=== PATIENT | female | born 1945 | race Caucasian/White ===

== ENCOUNTER 2017-09-12 13:46 | Observation (INO) | payer OTHER, SELFPAY ==
[~2017-09-12] VITALS: Ht 162.6 cm; Wt 88.8 kg
[~2017-09-12 13:46] MED LIST: PROPRANOLOL 1010 MG PO
[2017-09-12 13:49] VITALS: BP 178/83
[2017-09-12] MEDS ORDERED: VITAMIN D5000 UNIT PO (13:54)
[2017-09-12] MEDS ORDERED: METFORMIN HCL500 MG PO (13:54)
[2017-09-12] MEDS ORDERED: PLAVIX 75 MG TA75 M1 PO (13:54)
[2017-09-12 14:18] LABS: ABSOLUTE EOSINOPHILS 0.3 thou/uL (0.0-0.7); ABSOLUTE LYMPHOCYTES 1.7 thou/uL (0.8-5.3); ABSOLUTE MONOCYTES 0.5 thou/uL (0.0-1.2); ABSOLUTE NEUTROPHILS 6.1 thou/uL (1.6-8.1); BASOPHILS 0.2 %; HEMATOCRIT 39.2 % (37.0-47.0); HEMOGLOBIN 13.3 gm/dL (12.0-15.0); LYMPHOCYTES 20.3 %; MCH 31.3 pg (26.0-34.0); MCHC 33.9 g/dL (28.0-37.0); MCV 92.4 fL (80.0-100.0); MONOCYTES 5.5 %; MPV 7.8 fl. (7.2-11.1); NUCLEATED RBCS 0 /100WBC; PLATELET COUNT* 286 thou/uL (150-400); RBC 4.24 mil/uL (4.20-5.00); RDW-CV 13.4 % (10.5-14.5); WBC 8.6 thou/uL (4.0-11.0)
[2017-09-12 14:23] LABS: ANION GAP 9 mmol/L (7-16); BUN 18 mg/dL (7-18); CALCIUM 11.6 mg/dL (8.5-10.1); CHLORIDE 99 mmol/L (98-107); CO2 28 mmol/L (21-32); CREATININE 1.2 mg/dL (0.6-1.3); GLUCOSE 108 mg/dL (70-99); POTASSIUM 4.2 mmol/L (3.5-5.1); SODIUM 136 mmol/L (136-145)
[2017-09-12 14:27] LABS: INR 1.1; PROTIME 10.4 Seconds (9.20-11.50)
[2017-09-12 14:34] LABS: ALKALINE PHOSPHATASE 57 U/L (46-116); CHOLESTEROL 147 mg/dL (<200); HDL CHOLESTEROL 29 mg/dL (>40); LDL CHOLESTEROL 66 mg/dL (<100); LIPASE 409 U/L (73-393); NT-PRO BRAIN NAT PEPTIDE 201 pg/mL (<300); SGOT 22 U/L (15-37); SGPT 28 U/L (30-65); TC:HDL 5.1 Ratio (Not establshd); TOTAL BILIRUBIN 0.3 mg/dL (<0.1-1.0); TOTAL PROTEIN 7.9 g/dL (6.4-8.2); TRIGLYCERIDE 263 mg/dL (<150); TROPONIN-I LEVEL <0.06 ng/mL (<0.06); VLDL 53 mg/dL (<40)
[2017-09-12 14:35] LABS: SERUM ASSESSMENT Slight Lipemia
--- NOTE | 2017-09-12 15:33 | EKG ---
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: ALIRIO : 1945 Requested By: Gildardo Bradshaw Order Number: [id number] MD: Joseph Lynch Measurements Intervals [place] Rate: 88 P: 55 W[place]: 162 QRS: 31 QRSD: 92 T: 45 QT: 343 QTc: 415 Interpretive Statements Sinus rhythm Left atrial enlargement Compared to ECG 12/07/2014 12:23:16 Atrial abnormality now present Sinus arrhythmia no longer present Electronically Signed On 09-12-2017 15:33:16 CDT by Joseph Lynch [email or web address] <ELECTRONICALLY SIGNED> By: Joseph Lynhc MD, [facility] 09/12/17 1533 1350 1350 Joseph Lynch MD, FACC /EPI
--- NOTE | 2017-09-12 18:00 | NUR ---
PT GIVEN DINNER TRAY AT THIS TIME AND GI COCKTAIL WILL BE DRANK AFTER EATING DINNER.
[2017-09-12 19:10] VITALS: BP 134/68
[2017-09-12 19:23] VITALS: BP 161/68
[2017-09-12] MEDS ORDERED: LISINOPRIL-HCT1 EAC1 PO (19:28)
[2017-09-12] MEDS ORDERED: ATORVASTATIN PO (19:31)
[2017-09-13] VITALS (7 sets, daily range): BP systolic 112–166; BP diastolic 40–73
--- NOTE | 2017-09-13 05:35 | NUR ---
PATIENT ARRIVED FROM ED AROUND 1914 VIA CART. PATIENT A/OX4 AND PLEASANT. REPORTING CHEST "TIGHTNESS" RADIATING TO NECK/JAW. EKG APPEARED NORMAL SINUS RHYTHM. TROP'S ALL NEGATIVE. NPO FOR STRESS TEST TODAY. ON ROOM AIR. IV SALINE LOCKED. UP AD RUSSELL. BP STABLE, ELEVATED LAST NIGHT- DR BAKER NOTIFED AND ONETIME DOSE 10 MG LISINOPRIL GIVEN. SEE CHARTING. CALL LIGHT IN REACH, WILL CONTINUE WITH PLAN OF CARE.
[2017-09-13] MEDS ORDERED: PANTOPRAZOLE SO40 M1 PO (09:27)
[2017-09-13] MEDS ORDERED: ATORVASTATIN CA20 MG PO (09:27)
--- NOTE | 2017-09-13 10:28 | NUR ---
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, TRACING SR THIS AM- UPON ASSESSMENT PT NOTED TO RESTING IN BED, WATCING TV- PT A&O X4- CONTINENT OF BOWEL AND BLADDER- UP AD-RUSSELL IN ROOM WITH STEADY GAIT NOTED- LCTA, RESP EVEN AND UN-LABORED- VSS, O2 SAT 92% ON RA- ABDOMEN SOFT/ROUND/NON-TENDER, BS X4 QUADS- PT REPORTS TO HAVE HAD BM THIS AM- RIGHT DORSALIS PEDIS +1, LEFT 2+- IV NOTED TO RIGHT FA INTACT AND SL- LIGHT BREAKFAST GIVEN THIS AM, THEN NPO FOR SCHEDULED STRESS TEST THIS SHIFT- D/C ORDERS PENDING STRESS RESULTS- CHEST X-RAY COMPLETED THIS AM ORDERED, NEGATIVE FOR ABNORMALITIES- PT DENIES ANY C/O PAIN/DISCOMFORT AT THIS TIME- CALL LIGHT AND PERSONAL BELONGINGS WITH IN REACH- HOURLY ROUNDS IN PLACE R/T SAETY/NEEDS- ALL NEEDS MET AT THIS TIME-WCTM
--- NOTE | 2017-09-13 11:46 | NUR ---
Pt is A&O. Resides at home alone. Independent with ADLs. No DME. No hx of HH or SNF. Strong support sx. Pt NPO for stress test today. Goal is to return home at hi. Following.
[2017-09-13 13:08] LABS: eGFR IF AFRICAN AMERICAN 64 (>59)
--- NOTE | 2017-09-13 13:59 | EKG ---
[place] [address] ELECTROCARDIOGRAM REPORT Name: COURTNEY RUSH Room: [address] ADM IN M.R.#: [id number] Admission: 09/12/17 Attend Phys: Luis Enrique Lei MD Discharge: Date of : 47 Report #: [id number] THIS REPORT FOR: //name// [facility] Test Date: 2017-09-12 Test Time: 22:11:13 Pat Name: COURTNEY RUSH Department: Room: [address] Gender: F Credit Card Control Clerk: BYRON : 1945 Requested By: Luis Enrique Lei Order Number: [id number] Reading MD: Joseph Lynch Measurements Intervals [place] Rate: 58 P: 51 CT: 177 QRS: 48 QRSD: 91 T: 57 QT: 421 QTc: 414 Interpretive Statements Sinus rhythm Compared to ECG 09/12/2017 13:50:22 Atrial abnormality no longer present Electronically Signed On 09-13-2017 13:59:19 CDT by Joseph Lynch [email or web address] <ELECTRONICALLY SIGNED> By: Joseph Lynch MD, [facility] 09/13/17 1359 10 10 Joseph Lynch MD, [facility] /EPI
[2017-09-13 15:11] LABS: PARATHYROID HORMONE 18 pg/mL (15-65)
--- NOTE | 2017-09-13 17:33 | NUR ---
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
--- NOTE | 2017-09-13 23:56 | NUR ---
RECEIVRD REPORT AND ASSUMED CARE AT 1900. VSS. CARDIAC MONITORING IN PLACE. PT DENIES ANY COMPLAINTS OF PAIN. ASSESSMENT COMPLETED CHARTED. PT WAITING ON RESULTS OF STRESS TEST FOR DISCHARGE. PER CARDIOLOGY STRESS TEST WAS NEG, PT CLEARED FOR D/C. CARDIAC MONITORING AND IV DISCONTINUED. PAPERWORK COMPLPETED BY NURSING. PT BELONGINGS GATHERED AND GIVENT TO PT. DISCHARGE INSTRUCTIONS DISCUSSED WITH PT, VERBALIZED UNDERSTANDING. ALL QUESTIONS AND CONCERNS ANSWERED AT THIS TIME. PT AMBULATED TO PERSONAL CAR WITH NURSING STAFF.
--- NOTE | 2017-09-14 16:38 | CARDNUC ---
[place] [address] CARDIAC NUCLEAR IMAGING REPORT Name: ADRICOURTNEY M Room: [address] M.RAlbert#: [id number] Admission: 09/12/17 Attend Phys: Luis Enrique Lei, Discharge: 09/13/17 Date of : 47 Date of Service: 09/14/17 1638 Report #: [id number] THIS REPORT FOR: //name// APPROVED REPORT Study performed: 09/12/2017 17:00:00 Indication: Chest pain Patient Location: In-Patient Room #: [facility] Stress Tech: Farida Albaraod Stress Nurse: Nalini Mccoy RN NM Tech:DEBBIE Penny Ht: 5 ft 4 in Wt: 203 lbs BSA: 1.97 m2 BMI: 34.84 Medical History Medical History: Diabetes, HTN, Hyperlipidemia, PVD, Former Smoker Medications: atorvastatin, lisinopril, asa, clopidogrel Allergies: No known drug allergies Cardiac Risk Factors: Age, Hyperlipidemia, HTN, DM, PVD, Current Smoker, FHX of CAD Exercise History: Sedentary Resting Data Rest SPECT myocardial perfusion imaging was performed in supine position 30 minutes following the intravenous injection of 36.9 mCi of Tc-99m Sestamibi. Time of rest injection: 14:30 Date: 09/14/2017 The images were gated to evaluate regional wall motion and calculate left ventricular ejection fraction. Administration Route: Straight Stick Administration Site: Right Arm Pharmacologic Stress Pharmacologic stress test was performed by injecting Regadenoson 0.4 mg IV push over 10-15 seconds immediately followed by the intravenous injection of 42.0 mCi of Tc-99m Sestamibi. Time of stress injection: 13:35 Date: 09/13/2017 Administration Route: IV Administration Site: Right Arm Heart Rate at time of stress injection: 112 bpm. Gated Stress SPECT was performed 40 [place] [address] CARDIAC NUCLEAR IMAGING REPORT Name: COURTNEY RUSH Room: [address] MCleve#: [id number] Admission: 09/12/17 Attend Phys: Luis Enrique Lei, Discharge: 09/13/17 Date of : 47 Date of Service: 09/14/17 1638 Report #: [id number] injection. The images were gated to evaluate regional wall motion and calculate left ventricular ejection fraction. Prone imaging was performed. Stress Test Details Stress Test: Pharmacologic stress testing performed using 0.4 mg of regadenoson per 5 mL given IV over 10 seconds. Reason for pharmacologic stress test: physical limitation. HR Resting HR: 72 bpm Max Heart Rate (APMHR): 150 bpm Max HR Achieved: 112 bpm Target HR (85% APMHR): 127 bpm % of APMHR: 74 Recovery HR: 94 bpm HR response to stress: Normal HR response to stress BP Resting BP: 115/77 mmHg Max BP: 106/63 mmHg BP response to stress: Normal blood pressure response to stress. ECG Resting ECG: Sinus Rhythm Stress ECG: Sinus Rhythm ST Change: None Arrhythmia: None Recovery ECG: Sinus Rhythm Recovery ST Change: None Clinical Reason for Termination: Completed protocol Stress Symptoms: None Exercise duration: 0 min sec Exercise capacity: 1.0 METs Stress ECG Conclusion negative ecg Study Quality Study: Good Artifact: No artifact Lung Uptake: [place] [address] CARDIAC NUCLEAR IMAGING REPORT Name: COURTNEY RUSH Room: [address]#: [id number] Admission: 09/12/17 Attend Phys: Luis Enrique Lei, Discharge: 09/13/17 Date of : 47 Date of Service: 09/14/17 1638 Report #: [id number] At rest, the left ventricular ejection fraction was 70%.. Post stress, the left ventricular ejection was 70%.. SSS: 15 SRS: 8 SDS: 7 TID = 0.96. Perfusion There is a large, severe intensity inferolateral defect on stress imaging and uniform perfusion in other segments. The rest data is normal, compatible with ischemia of the inferolateral segments.The defect persisted on stress prone images. Images were reviewed using [place]. Wall Motion normal in all segments Nuclear Conclusion ECG Findings: negative for ischemia Clinical Findings: negative for ischemia Nuclear Findings: positive for ischemia Exercise Capacity: normal Left Ventricular Function: normal Risk Study: moderate Findings compatible with a reversible ischemic defect of larger size involving inferolateral wall. Preserved LV function. <Conclusion> negative ecg <ELECTRONICALLY SIGNED> By: Andres Lyon MD, FACC 09/14/17 1638 1638 1638 Andres Lyon MD, FACC /INF
[2017-09-15] MEDS ORDERED: IMDUR 30 MG TAB30 M1 PO (16:21)
[2017-09-15] MEDS ORDERED: NITROSTAT0.4 M1 SUBLING (16:22)
--- NOTE | 2017-09-18 15:17 | CON ---
[address] [address] CONSULTATION Name: ADRICOURTNEY Cuba Room: [address] Cori Pitt#: [id number] Admission: 09/12/17 Attend Phys: Luis Enrique Lei MD Discharge: 09/13/17 Date of : 47 Report #: [id number] THIS REPORT FOR: //name// CC: Luis Enrique Diego DATE OF SERVICE: 09/13/2017 This is WYATT Gonzalez dictating in collaboration with Dr. Héctor Boudreaux. REASON FOR CONSULTATION: Peripheral artery disease, abdominal aortic aneurysm. HISTORY OF PRESENT ILLNESS: The patient is a very pleasant 71-year-old female who presented to the Emergency Department with complaints of epigastric and midsternal chest pain with radiation up into her neck and into her back. She did report some nausea and diaphoresis. She reports her symptoms started approximately 3 weeks ago, initially started with a stomachache. She did recently start taking her statins daily as well as was initiated on Plavix through our office and vitamin D through her primary care physician. She did contact our office, she reported the symptoms, and they advised her to present to the Emergency Department for further evaluation and treatment. She does also report changes in her skin over the past few weeks. She states the skin on her hands started peeling off, although this has improved some. A CTA of the chest, abdomen and pelvis were obtained upon admission, which incidentally identified a 3.4 cm abdominal aortic aneurysm as well as a possible minimal short-segment dissection or plaque in the abdominal aorta connecting near the renal artery and extending below the renal artery. There is also a focal segment of noncalcified plaque or possibly thrombus in the superior mesenteric artery. We have been asked to evaluate the patient and give our opinion regarding these findings. Of note, she was evaluated in our outpatient office on 08/09/[address] Alvarez for complaints of right lower extremity claudication with ambulation. She has been on vacation with her sisters in [place] and was able to walk very little due to the leg pain. She underwent an arterial testing in her outpatient office and is scheduled for a right lower extremity arteriogram next week, on 09/19/[address] Alvarez. She denies any pain at rest. She has been trying to quit smoking, is now down to about 1/2 a pack per day. She denies any current chest pain, abdominal pain, nausea, vomiting, fevers or chills. PAST MEDICAL HISTORY: 1. Diabetes mellitus, type 2. 2. Hypertension. 3. Hyperlipidemia. 4. Multiple sclerosis. 5. [place] [address] CONSULTATION Name: ADRICOURTNEY Bereket Room: [address] Cori Pitt#: [id number] Admission: 09/12/17 Attend Phys: Luis Enrique Lei MD Discharge: 09/13/17 Date of : 47 Report #: [id number] 6. Peripheral artery disease. 7. History of carotid artery stenosis. PAST SURGICAL HISTORY: 1. Detached retina. 2. Cholecystectomy. 3. Hysterectomy. ALLERGIES: No known drug allergies. FAMILY HISTORY: Significant for varicose veins in her father who at the age of 52 from a drowning. Her mother at the age of 72 from a myocardial infarction. She has a brother with hypertension and varicose veins as well as a sister with hypertension and heart disease. SOCIAL HISTORY: She is a current 1/2 pack per day smoker. She denies any alcohol or illicit drug use. HOME MEDICATIONS: 1. Bystolic 10 mg daily. 2. Lisinopril with hydrochlorothiazide 20/12.5 mg daily. 3. Metformin 500 mg twice daily. REVIEW OF SYSTEMS: A 12-point review of systems has been reviewed and is negative except for the above mentioned in the history of present illness. PHYSICAL EXAMINATION: VITAL SIGNS: Temperature 36.7, heart rate 77, respiratory rate is 18, blood pressure is 121/61. GENERAL: She is alert, oriented, in no acute distress. HEENT: Head is normocephalic, atraumatic. NECK: Supple, without jugular venous distention or carotid bruit. HEART: Regular rate and rhythm. CHEST: Lungs are clear to auscultation bilaterally. ABDOMEN: Soft, nontender, positive bowel sounds. EXTREMITIES: He has palpable bilateral radial, femoral and left dorsalis pedis pulses. She has positive Doppler signals in bilateral posterior tibialis arteries as well as the right dorsalis pedis artery. She has no wounds or abrasions noted on her extremities. NEUROLOGIC: Alert and oriented with no focal neurologic deficits. LABORATORY DATA: Hemoglobin is 13.3, hematocrit 39.2, white blood cell count 8.6, platelets 286. Sodium 136, potassium 4.2, chloride 99, CO2 of 28, BUN 18, creatinine is 1.2. ASSESSMENT AND PLAN: [place] [address] CONSULTATION Name: COURTNEY RUSH Room: [address] Cori Pitt#: [id number] Admission: 09/12/17 Attend Phys: Luis Enrique Lei MD Discharge: 09/13/17 Date of : 47 Report #: [id number] 1. Peripheral artery disease with right lower extremity claudication at even short distances. She is scheduled for a right lower extremity arteriogram as an outpatient in our [place] office on 09/19/2017. We will plan to proceed as an outpatient as scheduled. Recommend continuing aspirin therapy. We will discuss possible Brilinta as she does not seem to be tolerating Plavix well. 2. Abdominal aortic aneurysm measuring 3.4 cm in maximum diameter. We will arrange for a followup abdominal aortic ultrasound in [address] Boudreaux will review CTA images and make any further recommendations. 3. Epigastric and chest pain with radiation up into her neck. She is scheduled for a stress test this afternoon and is scheduled for discharge if her stress test is normal. 4. Diabetes mellitus, type 2. She will continue with metformin. 5. Hyperlipidemia. 6. Hypertension. 7. Tobaccoism. We again discussed the importance of smoking cessation. She has been able to cut down to 1/2 pack per day and is continuing to try to quit. We thank you for the opportunity to participate in the care of this patient. Please feel free to contact our office with any questions or concerns. <ELECTRONICALLY SIGNED> By: Aurelio Alvarez DO 09/18/17 1517 1232 [id number] Deutsch /elmer
[2017-09-28] MEDS ORDERED: ASPIR 8181 MG PO (16:35)
== END 2017-09-13 21:45 | disposition home or self-care (01) ==
LOC: M.ERS 13:46 → M.2W 16:21 → M.TBA-ER 16:21 → M.2W 16:21
PROVIDERS: Emergency Medicine; ADMIT Internal Medicine
DX: I73.9 Peripheral vascular disease, unspecified (principal); I12.9 Hypertensive chronic kidney disease with stage 1 through stage 4 chronic kidney disease, or unspecified chronic kidney disease; N18.9 Chronic kidney disease, unspecified; E11.22 Type 2 diabetes mellitus with diabetic chronic kidney disease; E66.9 Obesity, unspecified; I71.4 Abdominal aortic aneurysm, without rupture; F17.210 Nicotine dependence, cigarettes, uncomplicated; E83.52 Hypercalcemia; Z79.899 Other long term (current) drug therapy; K21.9 Gastro-esophageal reflux disease without esophagitis

== ENCOUNTER 2017-09-16 11:04 | Inpatient (IN) | payer OTHER, SELFPAY ==
[2017-09-16] VITALS (14 sets, daily range): BP systolic 112–142; BP diastolic 42–86
[~2017-09-16] VITALS: Ht 162.6 cm; Wt 88.9 kg
--- NOTE | ~2017-09-16 | H ---
[address] [address] HISTORY AND PHYSICAL Name: COURTNEY RUSH Room: [address]R.#: [id number] Admission: 09/16/17 Attend Phys: Joseph Lynch MD, Discharge: 09/17/17 Date of : 47 Report #: [id number] THIS REPORT FOR: //name// Please refer to the History and Physical performed in the physician's office. By: 1019Medical Records Staff RACHAEL /ALIRIO
[~2017-09-16 11:04] MED LIST changes: +ATORVASTATIN CA20 MG PO; +ATORVASTATIN PO; +IMDUR 30 MG TAB30 M1 PO; +LISINOPRIL-HCT1 EAC1 PO; +METFORMIN HCL500 MG PO; +NITROSTAT0.4 M1 SUBLING; +PANTOPRAZOLE SO40 M1 PO; +PLAVIX 75 MG TA75 M1 PO; +VITAMIN D5000 UNIT PO
[2017-09-17] VITALS: BP 88/54
[2017-09-17 04:00] VITALS: BP 121/38
[2017-09-17 04:29] LABS: HEMATOCRIT 29.9 % (37.0-47.0); HEMOGLOBIN 10.2 gm/dL (12.0-15.0); MCH 31.4 pg (26.0-34.0); MCHC 34.1 g/dL (28.0-37.0); MCV 91.9 fL (80.0-100.0); MPV 7.9 fl. (7.2-11.1); RBC 3.26 mil/uL (4.20-5.00); RDW-CV 13.4 % (10.5-14.5); WBC 10.2 thou/uL (4.0-11.0)
[2017-09-17 04:46] LABS: ALBUMIN 3.1 g/dL (3.4-5.0); ALKALINE PHOSPHATASE 49 U/L (46-116); ANION GAP 10 mmol/L (7-16); BUN 26 mg/dL (7-18); CALCIUM 9.1 mg/dL (8.5-10.1); CHLORIDE 102 mmol/L (98-107); CHOLESTEROL 99 mg/dL (<200); CO2 25 mmol/L (21-32); CREATININE 1.3 mg/dL (0.6-1.3); GLUCOSE 161 mg/dL (70-99); HDL CHOLESTEROL 25 mg/dL (>40); LDL CHOLESTEROL 42 mg/dL (<100); POTASSIUM 3.7 mmol/L (3.5-5.1); SGOT 17 U/L (15-37); SGPT 23 U/L (30-65); SODIUM 137 mmol/L (136-145); TOTAL BILIRUBIN 0.3 mg/dL (<0.1-1.0); TOTAL PROTEIN 6.3 g/dL (6.4-8.2); TRIGLYCERIDE 161 mg/dL (<150); TROPONIN-I LEVEL <0.06 ng/mL (<0.06); VLDL 32 mg/dL (<40)
[2017-09-17 04:49] LABS: SERUM ASSESSMENT Clear
[2017-09-17 07:30] VITALS: BP 113/62
[2017-09-17 09:21] VITALS: BP 121/38
--- NOTE | 2017-09-17 09:34 | EKG ---
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
--- NOTE | 2017-09-17 09:36 | EKG ---
[place] [address] ELECTROCARDIOGRAM REPORT Name: ADRI,COURTNEY Bereket Room: [address] IN .R.#: [id number] Admission: 09/16/17 Attend Phys: Joseph Lynch MD, Discharge: Date of : 47 Report #: [id number] THIS REPORT FOR: //name// [facility] Test Date: 2017-09-16 Test Time: 17:04:42 Pat Name: COURTNEY RUSH Department: Room: Gender: F Ship Superintendent: : 1945 Requested By: Joseph Lynch Order Number: [id number] Reading MD: Luis Diego Measurements Intervals [place] Rate: 61 P: 38 OR: 178 QRS: 41 QRSD: 107 T: 69 QT: 415 QTc: 418 Interpretive Statements Sinus rhythm Compared to ECG 09/12/2017 22:11:13 No significant changes Electronically Signed On 09-17-2017 9:36:35 CDT by Luis Diego [email or web address] <ELECTRONICALLY SIGNED> By: Luis Diego MD, [facility] 09/17/17 0936 1704 1704 Luis Diego MD, FACC /EPI
--- NOTE | 2017-09-17 09:42 | EKG ---
[place] [address] ELECTROCARDIOGRAM REPORT Name: ADRI,COURTNEY [place] Room: [address] IN .R.#: [id number] Admission: 09/16/17 Attend Phys: Joseph Lynch MD, Discharge: Date of : 47 Report #: [id number] THIS REPORT FOR: //name// [facility] Test Date: 2017-09-17 Test Time: 07:34:12 Pat Name: COURTNEY RUSH Department: Room: Gender: F Marketing Operations Specialist: : 1945 Requested By: Joseph Lynch Order Number: [id number] Reading MD: Luis Diego Measurements Intervals [place] Rate: 66 P: 17 [place]: 163 QRS: 18 QRSD: 89 T: 51 QT: 434 QTc: 455 Interpretive Statements Sinus arrhythmia Compared to ECG 09/12/2017 22:11:13 Sinus rhythm no longer present Electronically Signed On 09-17-2017 9:42:14 CDT by Luis Diego [email or web address] <ELECTRONICALLY SIGNED> By: Luis Diego MD, [facility] 09/17/17 0942 0734 0734 Luis Diego MD, FACC /EPI
[2017-09-17] MEDS ORDERED: ASPIR 8181 MG PO (10:26)
[2017-09-17] MEDS ORDERED: BRILINTA90 MG PO (10:35)
[2017-09-17 10:42] VITALS: BP 113/62
--- NOTE | 2017-09-17 10:52 | CARD ---
[address] [address] CARDIAC CATH REPORT Name: COURTNEY RUSH Room: [address] IN .R.#: [id number] Admission: 09/16/17 Attend Phys: Joseph Lynch MD, Discharge: Date of : 47 Report #: [id number] THIS REPORT FOR: //name// APPROVED REPORT Study performed: 09/16/2017 13:21:03 Patient Details The patient is a 71 year-old female Event Personnel Joseph Lynch Sand Bobber, An Felix RN Crime Victim Specialist, Mayra Castillo RN Monitor, Lauryn Hagan Procedures Performed Art Access - R femoral artery* Left Heart Cath w/or w/o Coronaries [id number] [facility] w/wo Plasty Single RCA [id number] Indication Unstable angina , Positive stress test Risk Factors Family History, Hypercholesterolemia, Hypertension Admission/Lab Medications/Medications given during procedure Aspirin, Platelet Aff. Inhib., Heparin IV 7500 units, Heparin IV 5000 units, Heparin IV 6000 units Procedure Narrative The patient was brought electively to the Cardiac Catheterization Laboratory and was prepped and draped in a sterile manner. The right femoral was infiltrated with 1% Lidocaine subcutaneous anesthesia. A 6Fr Roderfield sheath was inserted into the right femoral artery. Coronary angiography was performed using coronary diagnostic catheters. The right coronary system was accessed and visualized with a JR4 catheter. The left coronary system was accessed and visualized with a JL4 catheter. The left ventricle was accessed and visualized with a STRAIGHT PIGTAIL catheter. Left ventricular/Aortic Valve gradient assessed via catheter pullback. Pre-demployment femoral angiogram was performed . The patient tolerated the procedure well and there were no complications associated with the procedure. [place] [address] CARDIAC CATH REPORT Name: ADRICOURTNEY Bereket Room: [address] IN [facility]#: [id number] Admission: 09/16/17 Attend Phys: Joseph Lynch MD, Discharge: Date of : 47 Report #: [id number] Intraoperative Conscious Sedation Fentanyl 50 mcg Dose: 4214 mGy Contrast Type and Amount: Visipaque 700 ml Coronary Angiography The patient's coronary anatomy is right dominant. Diagnostic Cath Left Main 0% narrowing LAD 30% proximal with 40% mid LAD narrowing Circumflex Nondominant vessel with 50% mid vessel narrowing and 100% distal occlusion with recanalization to fill a posterolateral branch Right Coronary Dominant vessel with 90% ostial narrowing, 90% diffuse proximalmid vessel disease 80% narrowing at the acute margin and 75% distal right coronary narrowing just beyond the acute margin Left Ventriculography Left Ventriculography was not performed. Hemodynamics The aortic pressure is 121/54 mmHg with a mean of 72 mmHg. The left ventricular pressure is 124/0 mmHg with a mean of mmHg. The left ventricular end diastolic pressure is 4 mmHg. There was no gradient across the aortic valve upon pullback. PCI Technique Lesion Anticoagulation was achieved with Heparin. Percutaneous coronary intervention was performed on the ostial right coronary artery. The lesion stenosis prior to intervention was 90% with ILANA 3 flow. A 6Fr JR 4.0 SH Guide Catheter was used to engage the right ostium. A IG: ProwaterFlex 180CM Interventional Guidewire was used to cross the lesion. BALLOON DILATION A Balloon catheter Mini Trek RX 1.20X12,2.0x12,2.5x12 was inserted and inflated up to 12atm for 15seconds. STENT DEPLOYMENT A drug-eluting stent Xience Alpine RX 3.0X8 was inserted and inflated up to 18atm for 10seconds. POST STENT DEPLOYMENT BALLOON DILATION A Balloon catheter NC Euphora 3.0 x 8 was inserted [place] [address] CARDIAC CATH REPORT Name: COURTNEY RUSH Room: [address]#: [id number] Admission: 09/16/17 Attend Phys: Joseph Lynch MD, Discharge: Date of : 47 Report #: [id number] 18atm for 10seconds. Final angiography reveals 10 % stenosis with ILANA 3 flow. PCI Technique Lesion 2 Percutaneous Coronary Intervention was performed on the proximalmid right coronary artery. The lesion stenosis prior to intervention was 90% with ILANA 3 flow. Balloon Dilation A Balloon catheter Mini Trek RX 1.20X12 was inserted and inflated up to 12atm for 15seconds. Stent Deployment A drug-eluting stent Xience Alpine RX 2.75X28 was inserted and inflated up to 16atm for 18seconds. Post Stent Deployment Balloon Dilation A Balloon catheter NC Trek RX 3.0 X 12 was inserted and inflated up to iraida for seconds. Additional Inflation: 12-18atm for seconds. Final angiography reveals 0 % stenosis with ILANA 3 flow. PCI Technique Lesion 3 Percutaneous Coronary Intervention was performed on the right coronary artery at the acute margin. The lesion stenosis prior to intervention was 80% with ILANA 3 flow. Stent Deployment A drug-eluting stent Xience Alpine RX 2.5X18 was inserted and inflated up to 16atm for 15seconds. Post Stent Deployment Balloon Dilation A Balloon catheter NC Trek RX 3.0 X 12 was inserted and inflated up to 16atm for 10seconds. Final angiography reveals 10 % stenosis with ILANA 3 flow. PCI Technique Lesion 4 Percutaneous Coronary Intervention was performed on the distal right coronary artery. The lesion stenosis prior to intervention was 75% with ILANA 3 flow. Balloon Dilation A Balloon catheter Xience Alpine RX 2.5X12 [place] [address] CARDIAC CATH REPORT Name: COURTNEY RUSH Room: [address] IN [facility].#: [id number] Admission: 09/16/17 Attend Phys: Joseph Lynch MD, Discharge: Date of : 47 Report #: [id number] up to 12atm for 15seconds. Stent Deployment A drug-eluting stent Xience Alpine RX 2.5X15 was inserted and inflated up to 14atm for 15seconds. Final angiography reveals 0 % stenosis with ILANA 3 flow. Comments Right coronary artery was a diffusely diseased vessel with significant ostial proximalmid acute marginal and distal right stenosis requiring extensive lesion preparation and deployment of sequential drug-eluting stents to achieve optimal flow to the distal vessel Conclusion 1 severe multivessel coronary artery disease characterized by the following: A 30% proximal and 40% mid LAD narrowing B nondominant circumflex with 50% mid vessel narrowing and 100% distal chronic total occlusion with recanalization to fill a posterolateral branch of the circumflex C dominant right coronary artery with 90% ostial 90% proximalmid 80% acute marginal and 75% distal stenosis #2 normal left-sided hemodynamic study #3 successful percutaneous coronary intervention with deployment of sequential drug-eluting stents at the sites of 90% ostial, 90% proximalmid, 80% acute marginal and 75% distal right coronary stenosis with 10, 0 ,10, and 0% residual narrowings following stent deployment and ILANA-3 flow the distal vessel Recommendations Cardiac Risk Reduction Program Aggressive Medical Therapy Medications Administered Aspirin (any) [place] [address] CARDIAC CATH REPORT Name: COURTNEY RUSH Room: [address] IN ..#: [id number] Admission: 09/16/17 Attend Phys: Joseph Lynch MD, Discharge: Date of : 47 Report #: [id number] Diagnostic Cath Approved by: Joseph Lynch MD Date/Time: 09/17/17 at 1048 hrs. <ELECTRONICALLY SIGNED> By: Joseph Lynch MD, [facility] 09/17/17 1052 105 1052Joseph Lynch MD, FAC /INF
[2017-09-17] MEDS ORDERED: COLACE100 MG PO (11:08)
--- NOTE | 2017-09-17 11:28 | D ---
[address] [address] DISCHARGE SUMMARY Name: COURTNEY RUSH Room: [address] IN M.R.#: [id number] Admission: 09/16/17 Attend Phys: Joseph Lynch MD, Discharge: Date of : 47 Report #: [id number] THIS REPORT FOR: //name// CC: Joseph Alvarez Kaleemateo Diego DATE OF SERVICE: 09/17/2017 FINAL DISCHARGE DIAGNOSES: 1. Abnormal nuclear stress test. 2. Unstable angina. 3. Hypercholesterolemia. 4. Hypertension. 5. Type 2 diabetes. 6. Gastroesophageal reflux disease. 7. Exogenous obesity. PROCEDURES: On 09/16/2017 -- left heart catheterization, left ventriculography, selective coronary arteriography and percutaneous coronary intervention of the right coronary artery with deployment of 4 drug-eluting stents. The patient is a pleasant 71-year-old female who has had episodes of chest discomfort radiating up into the jaw for approximately 2 weeks. They have been occurring on a nearly daily basis. She had a stress test earlier this week, which revealed a large inducible inferolateral defect. In the context of risk factors including hypertension, hypercholesterolemia and diabetes as well as the aforementioned clinical scenario, strongly suggestive of unstable angina, I performed cardiac catheterization on 09/16/2017. That study revealed significant coronary artery disease characterized by sequential 90% proximal, 90% mid and 80% distal right coronary stenosis with total occlusion of the distal circumflex with recanalization to fill the distal posterolateral branch. There were mild narrowings of the prominent LAD system. In this context, I elected to proceed with percutaneous coronary intervention, deploying 4 drug-eluting stents in the right coronary artery, a 3.0 x 8 proximally, followed by 2.75 x 28 in the mid portion, a 2.5 x 18 at the acute margin and 2.5 x 15 distally, with 0-10% residual narrowing of the 4 sites following stent deployment, ILANA 3 flow of the distal vessel. The patient did well post-procedurally, and there was no increase in troponin and is less than 0.06. Laboratory on 09/17 revealed sodium 137, potassium 3.7, BUN 26, creatinine 1.3. Hemoglobin 10.2, white blood cell count 10,200, with 223,000 platelets. Cholesterol 99, triglycerides 161, HDL 25, [place] 42[place] [address] DISCHARGE SUMMARY Name: COURTNEY RUSH Room: [address]#: [id number] Admission: 09/16/17 Attend Phys: Joseph Lynch MD, Discharge: Date of : 47 Report #: [id number] The patient ambulated in the hallways without difficulty. There was minimal ecchymosis at the right femoral site of catheterization. She ambulated without difficulty. She was discharged home on the following medications: Aspirin 81 mg daily, atorvastatin 20 mg at bedtime, cholecalciferol, vitamin D3 of 5000 units daily, isosorbide mononitrate 30 mg daily, lisinopril/hydrochlorothiazide 20/12.5 one tablet b.i.d. Metformin 500 mg b.i.d., to be resumed on 09/18. Pantoprazole 40 mg daily, ticagrelor or Brilinta 90 mg b.i.d., with a 180 mg loading dose given periprocedurally. I will plan to see the patient in followup this next week with strong consideration of staged intervention to the distal circumflex. Thus, the patient is discharged to home in stable condition on the aforementioned medications with followup as iterated above. <ELECTRONICALLY SIGNED> By: Joseph Lynch MD, [facility] 09/17/17 1128 0931Joseph Lynch MD, [facility] /nt
[2017-09-28] MEDS ORDERED: ASPIR 8181 MG PO (16:35)
== END 2017-09-17 11:31 | disposition home or self-care (01) | DRG 246 ==
LOC: M.CL 11:04 → M.TBA-CV 17:02 → M.2W 17:14
PROVIDERS: ADMIT Internal Medicine
PROC: B211YZZ Fluoroscopy of Multiple Coronary Arteries using Other Contrast (ICD-10-PCS; principal; 2017-09-17)
PROC: 027037Z Dilation of Coronary Artery, One Artery with Four or More Drug-eluting Intraluminal Devices, Percutaneous Approach (ICD-10-PCS; principal; 2017-09-17)
PROC: 4A023N7 Measurement of Cardiac Sampling and Pressure, Left Heart, Percutaneous Approach (ICD-10-PCS; principal; 2017-09-17)
DX: I25.110 Atherosclerotic heart disease of native coronary artery with unstable angina pectoris (principal); E78.00 Pure hypercholesterolemia, unspecified; I10 Essential (primary) hypertension; E11.9 Type 2 diabetes mellitus without complications; K21.9 Gastro-esophageal reflux disease without esophagitis; E66.09 Other obesity due to excess calories; Z68.33 Body mass index [BMI] 33.0-33.9, adult

== ENCOUNTER 2017-09-22 11:05 | Inpatient (IN) | payer OTHER, SELFPAY ==
[~2017-09-22] VITALS: Ht 162.6 cm; Wt 91.0 kg
[~2017-09-22 11:05] MED LIST changes: +ASPIR 8181 MG PO; +BRILINTA90 MG PO; +COLACE100 MG PO
[2017-09-22 11:09] VITALS: BP 109/82
[2017-09-22 11:23] LABS: HEMATOCRIT 32.4 % (37.0-47.0); HEMOGLOBIN 10.9 gm/dL (12.0-15.0); MCH 31.2 pg (26.0-34.0); MCHC 33.8 g/dL (28.0-37.0); MCV 92.4 fL (80.0-100.0); MPV 7.1 fl. (7.2-11.1); NUCLEATED RBCS 0 /100WBC; PLATELET COUNT* 368 thou/uL (150-400); RDW-CV 13.3 % (10.5-14.5); WBC 9.1 thou/uL (4.0-11.0)
[2017-09-22 11:36] LABS: ANION GAP 9 mmol/L (7-16); BUN 21 mg/dL (7-18); CALCIUM 9.5 mg/dL (8.5-10.1); CHLORIDE 101 mmol/L (98-107); CO2 26 mmol/L (21-32); CREATININE 1.2 mg/dL (0.6-1.3); GLUCOSE 152 mg/dL (70-99); POTASSIUM 3.7 mmol/L (3.5-5.1); SODIUM 136 mmol/L (136-145)
[2017-09-22 11:45] LABS: ABSOLUTE LYMPHOCYTES 1.3 thou/uL (0.8-5.3); ABSOLUTE MONOCYTES 0.4 thou/uL (0.0-1.2); ABSOLUTE NEUTROPHILS 6.5 thou/uL (1.6-8.1); ANISOCYTOSIS 1+; PLATELET ESTIMATE ADEQUATE; POIKILOCYTOSIS 1+
[2017-09-22 11:46] LABS: ALBUMIN 3.4 g/dL (3.4-5.0); ALKALINE PHOSPHATASE 61 U/L (46-116); LIPASE 154 U/L (73-393); MAGNESIUM 1.8 mg/dL (1.8-2.4); NT-PRO BRAIN NAT PEPTIDE 96 pg/mL (<300); SGOT 14 U/L (15-37); SGPT 19 U/L (30-65); TOTAL BILIRUBIN 0.7 mg/dL (<0.1-1.0); TOTAL PROTEIN 7.3 g/dL (6.4-8.2); TROPONIN-I LEVEL <0.06 ng/mL (<0.06)
[2017-09-22 11:55] LABS: APTT 24.9 Seconds (25.0-31.3); PROTIME 9.7 Seconds (9.20-11.50)
[2017-09-22 13:30] VITALS: BP 117/43
[2017-09-22 13:40] VITALS: BP 106/65
--- NOTE | 2017-09-22 15:16 | EKG ---
[place] [address] ELECTROCARDIOGRAM REPORT Name: COURTNEY RUSH Room: [address] IN [facility].#: [id number] Admission: 09/22/17 Attend Phys: Luis Diego MD Discharge: Date of : 47 Report #: [id number] THIS REPORT FOR: //name// [facility] ED Test Date: 2017-09-22 Test Time: 11:12:02 Pat Name: COURTNEY RUSH Department: Room: Gender: F Computer Terminal Operator: Adithya BELTRAN : 1945 Requested By: Ming Morgan Order Number: [id number] MD: Jelani Berg Measurements Intervals [place] Rate: 86 P: 51 WI: 176 QRS: 24 QRSD: 95 T: 37 QT: 349 QTc: 418 Interpretive Statements Sinus rhythm Probable left atrial enlargement Compared to ECG 09/17/2017 07:34:12 Sinus arrhythmia no longer present Electronically Signed On 09-22-2017 15:16:38 CDT by Jelani Berg [email or web address] <ELECTRONICALLY SIGNED> By: Jelani Berg MD, [facility] 09/22/17 1516 11 11 Jelani Berg MD, [facility] /EPI
--- NOTE | 2017-09-22 15:16 | H ---
[address] [address] HISTORY AND PHYSICAL Name: COURTNEY RUSH Room: [address] IN M.R.#: [id number] Admission: 09/22/17 Attend Phys: Luis Diego MD Discharge: Date of : 47 Report #: [id number] THIS REPORT FOR: //name// CC: Joseph Littlea Coby Kentrina Coby Diego INDICATION: Chest pain. HISTORY OF PRESENT ILLNESS: The patient is a very pleasant 71-year-old white female with coronary artery disease. She had cardiac catheterization on 09/16/2017 that showed significant disease of the proximal to mid and distal right coronary artery as well as an occluded distal circumflex. The patient has had a stress test that showed evidence of inducible ischemia and symptoms consistent with unstable angina. She underwent cardiac catheterization and percutaneous coronary intervention to the ostial to distal right coronary artery. The patient had multiple drug-eluting stents placed. The final angiographic result was excellent. The patient was discharged home on aspirin and Brilinta as her dual antiplatelet therapy. The patient called the office yesterday with generalized rash, felt to be due to Brilinta. She was told to discontinue the Brilinta and obtain Effient in place of the Brilinta. The patient's family apparently went to the pharmacy and found the Effient to be 200 dollars per month for prescription. The patient states she was unable to afford that and called the office this morning. She was having chest pain. She was brought to the Emergency Room. EKG shows sinus rhythm without acute ST or T-wave abnormality. At the time of my interview, the patient is pain free. She is without other cardiac complaint. She does have a generalized rash. PAST MEDICAL HISTORY: 1. Coronary artery disease. 2. Peripheral vascular disease. 3. Hypertension. 4. Hyperlipidemia. 5. GERD. 6. Type 2 diabetes mellitus. 7. Multiple sclerosis. FAMILY HISTORY: Positive for heart disease and vascular disease. SOCIAL HISTORY: The patient smokes daily. She smokes a half a pack of cigarettes. Drinks alcohol occasionally. REVIEW OF SYSTEMS: Positive for chest discomfort, dyspnea, rash, decreased hearing, arthritis without connective tissue disease, otherwise unremarkable. PHYSICAL EXAMINATION: [place] [address] HISTORY AND PHYSICAL Name: COURTNEY RUSH Room: [address]#: [id number] Admission: 09/22/17 Attend Phys: Luis Diego MD Discharge: Date of : 47 Report #: [id number] VITAL SIGNS: Blood pressure 106/65, pulse and regular. GENERAL: This is a pleasant lady who does not appear to be in distress. She is covered from her neck down with a rash that appears quite erythematous. HEENT: Head normocephalic, atraumatic. Extraocular muscles intact. Mucous membranes moist. NECK: Shows no jugular venous distention. There are no carotid bruits. CHEST: Reveals clear lung mckenzie without wheezes or rales. CARDIAC: Reveals a regular rhythm, normal S1 and S2, I do not appreciate gallop or murmur. ABDOMEN: Reveals normal bowel sounds. The abdomen is soft, nontender. EXTREMITIES: Shows no edema. SKIN: Warm, dry. A 12-lead EKG shows sinus rhythm without acute ST or T-wave abnormality. A V/Q scan was negative for pulmonary embolus. LABORATORY DATA: Labs are reviewed. D-dimer was elevated at 2.84. Coags within normal limits. Electrolytes were within normal limits. BUN 21, creatinine 1.2. Serum glucose 152. Initial troponin less than 0.06. NT-proBNP 96. CBC shows a white count of 9.1; hemoglobin 10.9; platelet count of 368,000. Chest x-ray shows no acute cardiopulmonary abnormality. IMPRESSION AND RECOMMENDATIONS: 1. Chest pain consistent with unstable angina. I am concerned about stent thrombosis. The patient is being admitted and placed on Effient and a heparin drip. We will repeat troponin in serial fashion. Continue Nitrostat p.r.n. Observe on telemetry. 2. Coronary artery disease as outlined above. Continue dual antiplatelet therapy for 1 year. 3. Hypertension, well controlled. Continue home medications. 4. Diabetes. Sugars minimally elevated. Expect this to improve once her acute illness is under better control. 5. Hyperlipidemia. Continue atorvastatin at current dose. 6. Gastroesophageal reflux disease. The patient is on Protonix. We will continue daily. <ELECTRONICALLY SIGNED> By: Luis Diego MD, FACC 09/22/17 1516 1439 1501Miczaira Diego MD, FACC /nt
[2017-09-22 20:00] VITALS: BP 94/60
[2017-09-23] VITALS: BP 96/56
[2017-09-23 04:00] VITALS: BP 128/60
[2017-09-23 07:48] VITALS: BP 153/85
[2017-09-23] MEDS ORDERED: EFFIENT10 MG PO (10:20)
[2017-09-23] MEDS ORDERED: MEDROL DOSPAK21 TA1 PO (10:23)
[2017-09-23 10:24] VITALS: BP 153/85
[2017-09-23 11:15] VITALS: BP 153/85
--- NOTE | 2017-09-26 08:15 | D ---
[address] [address] DISCHARGE SUMMARY Name: COURTNEY RUSH Room: [address] IN M.R.#: [id number] Admission: 09/22/17 Attend Phys: Luis Diego MD Discharge: 09/23/17 Date of : 47 Report #: [id number] THIS REPORT FOR: //name// CC: Joseph Diego DISCHARGE DIAGNOSES: 1. Chest pain. 2. Unstable angina. 3. Coronary artery disease. HOSPITAL COURSE: The patient was admitted to the hospital with increasing sternal chest pain. She had had recent percutaneous coronary intervention to the right coronary artery. She had residual disease in the circumflex with planned intervention in the upcoming week. She was discharged to home on aspirin and Brilinta. She developed a rash on Brilinta. Brilinta was discontinued. She was unable to fill Effient due to cost for the prescription. The following morning, she had acute chest pain and presented to the Emergency Room. The patient was admitted and placed on a heparin drip and loaded with Effient. The patient's rash defervesced with IV steroids. She had no further chest pain. She did rule out for myocardial infarction. EKGs were stable. The patient is being discharged in stable condition at this time. DISCHARGE DIAGNOSES: As outlined above. DISPOSITION: The patient is scheduled for intervention to her circumflex coronary artery in the upcoming week. She has been told to keep this appointment. <ELECTRONICALLY SIGNED> By: Luis Diego MD, FACC 09/26/17 0815 1017 1026Michael Verona Diego MD, FACC /nt
[2017-09-28] MEDS ORDERED: ASPIR 8181 MG PO (16:35)
== END 2017-09-23 12:32 | disposition home or self-care (01) | DRG 303 ==
LOC: M.ERS 11:05 → M.TBA-ER 12:50 → M.2W 12:50
PROVIDERS: Emergency Medicine Emergency Medical Services; ADMIT Internal Medicine Cardiovascular Disease
DX: I25.110 Atherosclerotic heart disease of native coronary artery with unstable angina pectoris (principal); I10 Essential (primary) hypertension; F17.210 Nicotine dependence, cigarettes, uncomplicated; G35 Multiple sclerosis; E78.5 Hyperlipidemia, unspecified; K21.9 Gastro-esophageal reflux disease without esophagitis; I73.9 Peripheral vascular disease, unspecified; E11.9 Type 2 diabetes mellitus without complications; Z95.5 Presence of coronary angioplasty implant and graft; Z88.8 Allergy status to other drugs, medicaments and biological substances; Z90.710 Acquired absence of both cervix and uterus; Z90.49 Acquired absence of other specified parts of digestive tract; Z79.82 Long term (current) use of aspirin; Z82.49 Family history of ischemic heart disease and other diseases of the circulatory system

== ENCOUNTER 2017-09-29 11:57 | Observation (INO) | payer OTHER, SELFPAY ==
[2017-09-29] VITALS (9 sets, daily range): BP systolic 157–183; BP diastolic 64–82
[~2017-09-29] VITALS: Ht 162.6 cm; Wt 87.1 kg
[~2017-09-29 11:57] MED LIST changes: +EFFIENT10 MG PO; +MEDROL DOSPAK21 TA1 PO
[2017-09-29 12:48] LABS: HEMATOCRIT 34.3 % (37.0-47.0); HEMOGLOBIN 11.4 gm/dL (12.0-15.0); MCH 31.3 pg (26.0-34.0); MCHC 33.2 g/dL (28.0-37.0); MCV 94.5 fL (80.0-100.0); MPV 7.4 fl. (7.2-11.1); RBC 3.63 mil/uL (4.20-5.00); RDW-CV 13.5 % (10.5-14.5); WBC 14.9 thou/uL (4.0-11.0)
[2017-09-29 12:56] LABS: APTT 22.7 Seconds (25.0-31.3); PROTIME 9.9 Seconds (9.20-11.50)
[2017-09-29 12:59] LABS: ANION GAP 11 mmol/L (7-16); BUN 29 mg/dL (7-18); CALCIUM 9.8 mg/dL (8.5-10.1); CHLORIDE 99 mmol/L (98-107); CO2 26 mmol/L (21-32); CREATININE 1.1 mg/dL (0.6-1.3); GLUCOSE 133 mg/dL (70-99); POTASSIUM 4.3 mmol/L (3.5-5.1); SODIUM 136 mmol/L (136-145)
[2017-09-29 13:03] LABS: ALBUMIN 3.8 g/dL (3.4-5.0); ALKALINE PHOSPHATASE 67 U/L (46-116); CHOLESTEROL 163 mg/dL (<200); HDL CHOLESTEROL 53 mg/dL (>40); LDL CHOLESTEROL 62 mg/dL (<100); SGOT 18 U/L (15-37); SGPT 35 U/L (30-65); TC:HDL 3.1 Ratio (Not establshd); TOTAL BILIRUBIN 0.4 mg/dL (<0.1-1.0); TOTAL PROTEIN 7.5 g/dL (6.4-8.2); TRIGLYCERIDE 241 mg/dL (<150); VLDL 48 mg/dL (<40)
[2017-09-29 13:05] LABS: SERUM ASSESSMENT Clear
--- NOTE | 2017-09-29 17:15 | NUR ---
POST HEART CATH REPORT GIVEN PATIENT VIA CART TO RM 221 R GROIN SITE C/D/I NO C/O PAIN INSTRUCTED SHAKER OUT LIGHT USE AND IN REACH
[2017-09-30] VITALS (9 sets, daily range): BP systolic 101–151; BP diastolic 66–74
--- NOTE | 2017-09-30 03:51 | NUR ---
ASSUMED PT CARE AT 1930. NURSING ASSESSMENT COMPLETED AT START OF SHIFT. RIGHT GROIN DRESSING SATURATED IN SEROSANGUENEOUS DRAINAGE. PT DENIES PAIN. PT TRACING SINUS RHYTHM ON HEART MONITOR. PT OFF BEDREST AT 1999. NO ACTIVE BLEEDING OBSERVED FROM RIGHT GROIN SITE. AT 2154, PT C/O ITCHING ALL OVER BACK WITH BURNING SENSATION. RASH NOTICED ON ENTIRE BACK AREA. DR. LICONA PAGED AT 2200, CALL BACK RECEIVED AT 220. NEW ORDERS RECEIVED, SEE EMAR FOR DOCUMENTATION. PT VERBALIZED PARTIAL RELIEF OF ITCHING. RASH CONTINUES TO BE PRESENT. HOURLY ROUNDING COMPLETED. CALL LIGHT WITHIN REACH.
[2017-09-30 05:27] LABS: HEMATOCRIT 33.6 % (37.0-47.0); HEMOGLOBIN 11.1 gm/dL (12.0-15.0); MCH 30.9 pg (26.0-34.0); MCHC 33.1 g/dL (28.0-37.0); MCV 93.5 fL (80.0-100.0); MPV 7.3 fl. (7.2-11.1); NUCLEATED RBCS 0 /100WBC; PLATELET COUNT* 406 thou/uL (150-400); RBC 3.59 mil/uL (4.20-5.00); RDW-CV 14.2 % (10.5-14.5); WBC 16.1 thou/uL (4.0-11.0)
[2017-09-30 05:35] LABS: POTASSIUM 4.1 mmol/L (3.5-5.1)
[2017-09-30 07:03] LABS: ABSOLUTE EOSINOPHILS 0.2 thou/uL (0.0-0.7); ABSOLUTE LYMPHOCYTES 2.6 thou/uL (0.8-5.3); ABSOLUTE MONOCYTES 0.3 thou/uL (0.0-1.2)
[2017-09-30 07:04] LABS: ANISOCYTOSIS 1+; PLATELET ESTIMATE ADEQUATE; POIKILOCYTOSIS 1+; POLYCHROMASIA Occasional
--- NOTE | 2017-09-30 07:15 | NUR ---
CHANGE OF SHIFT [facility] ASSUMED PATIENT CARE
--- NOTE | 2017-09-30 11:38 | CARD ---
[address] [address] CARDIAC CATH REPORT Name: COURTNEY RUSH Room: [address] Sweetie#: [id number] Admission: 09/29/17 Attend Phys: Joseph Lynch MD, Discharge: Date of : 47 Report #: [id number] THIS REPORT FOR: //name// APPROVED REPORT Study performed: 09/29/2017 14:20:23 Patient Details Patient Status: Out-Patient Room #: The patient is a 71 year-old female Event Personnel Joseph Lynch Renal Dialysis Technician, Mayra Castillo RN Clinching Machine Operator, Lauryn Hagan Monitor, Luis Enrique Cavanaugh Scrub Procedures Performed Art Access - R femoral artery* , Left Heart Catheterization, Selective Right and Left Coronary Angiography; attempted Recanalization of a chronic total occlusion of the distal circumflex Indication Positive stress test Risk Factors Obesity, Hypercholesterolemia, Hypertension Previous Procedures/Diagnoses Previous PCI Admission/Lab Medications/Medications given during procedure Heparin Unfract. Procedure Narrative The patient was brought electively to the Cardiac Catheterization Laboratory and was prepped and draped in a sterile manner. The right femoral was infiltrated with 2% Lidocaine subcutaneous anesthesia. A [place] 6 FR sheath was inserted into the right femoral artery. Coronary angiography was performed using coronary diagnostic catheters. The right coronary system was accessed and visualized with a IM 6fr catheter. The left coronary system was accessed and visualized with a JL4 6fr catheter. Left ventricular/Aortic Valve gradient assessed via catheter pullback. Pre-demployment femoral angiogram was performed . Closure device was deployed with a 6 Fr Angioseal STS 6Fr. The patient tolerated [place] [address] CARDIAC CATH REPORT Name: COURTNEY RUSH [address]: [address] [id number] Admission: 09/29/17 Attend Phys: Joseph Lynch MD, Discharge: Date of : 47 Report #: [id number] were no complications associated with the procedure. There was no hematoma. Intraoperative Conscious Sedation Sedation start time: 14:38 Case end Time: 15:44 Fentanyl 50 mcg Versed 2 mg Fluoro Time: 33.6 minutes Dose: DAP 095039 cGycm2 2963.95 mGy Contrast Type and Amount: Visipaque 170 ml Coronary Angiography The patient's coronary anatomy is right dominant. Diagnostic Cath Left Main 0% narrowing LAD 40% mid LAD narrowing Circumflex Nondominant vessel with 40% mid vessel narrowing and 100% chronic total occlusion of the distal circumflex with recannulization to fill a posterior lateral branch Right Coronary Widely patent proximal mid and distal right coronary stenosis without significant narrowing Hemodynamics The aortic pressure is 172/67 mmHg with a mean of mmHg. The left ventricular pressure is 162/2 mmHg with a mean of mmHg. The left ventricular end diastolic pressure is 8 mmHg. There was no gradient across the aortic valve upon pullback. PCI Technique Lesion Anticoagulation was achieved with Heparin. The lesion stenosis prior to intervention was 100% with ILANA 1 flow. A 6FR LAUNCHER EBU 3.5 Guide Catheter was used to engage the ostium. A IG: Fielder XT 300cm Interventional Guidewire was used to cross the lesion. BALLOON DILATION A Balloon catheter Mini Trek 0TW 1.2 X 12 was inserted and inflated up to iraida for seconds. Final angiography reveals 100 % stenosis with ILANA 1 flow. COMMENTS I was able to traverse the chronic total occlusion in the distal circumflex with a fielder XT wire. I was unable however to pass a 1.2 [place] [address] CARDIAC CATH REPORT Name: COURTNEY RUSH Room: [address] M.R.#: [id number] Admission: 09/29/17 Attend Phys: Joseph Lynch MD, Discharge: Date of : 47 Report #: [id number] x 8 mm mini trek balloon, fine cross catheter, or turnpike LP catheter despite reasonable guide support and use of a guideliner catheter. Thus I was unable to recanalize the chronic total occlusion of the distal circumflex Conclusion #1 significant coronary artery disease characterized by the following: A 40% mid LAD narrowing B large dominant right coronary artery with widely patent proximal mid and distal stents C 40% mid circumflex narrowing with 100% chronic total occlusion of the distal circumflex with reconstitution and ILANA 1 flow to a distal posterolateral branch #2 mild systemic systolic hypertension #3 unsuccessful attempt at recanalization of a chronic total occlusion of the distal circumflex Recommendations Cardiac Risk Reduction Program Aggressive Medical Therapy Medications Administered Heparin boluses <ELECTRONICALLY SIGNED> By: Joseph Lynch MD, [facility] 09/30/17 1138 1138 1138Joseph Lynch MD, [facility] /INF
--- NOTE | 2017-09-30 13:45 | EKG ---
[place] [address] ELECTROCARDIOGRAM REPORT Name: COURTNEY RUSH [address]#: [id number] Admission: 09/29/17 Attend Phys: Joseph Lynch MD, Discharge: Date of : 47 Report #: [id number] THIS REPORT FOR: //name// [facility] Test Date: 2017-09-29 Test Time: 12:51:33 Pat Name: COURTNEY RUSH Department: Room: Gender: F Senior Bioinformatics Scientist: : 1945 Requested By: Joseph Lynch Order Number: [id number] Armand MD: Jelani Berg Measurements Intervals [place] Rate: 66 P: 1 NM: 161 QRS: 22 QRSD: 90 T: 50 QT: 406 QTc: 426 Interpretive Statements Sinus rhythm Compared to ECG 09/22/2017 11:12:02 No significant changes Electronically Signed On 09-30-2017 13:45:37 CDT by Jelani Berg [email or web address] <ELECTRONICALLY SIGNED> By: Jelani Berg MD, [facility] 09/30/17 1345 1251 1251 Jelani Berg MD, FACC /EPI
[2017-09-30 15:40] LABS: HEMATOCRIT 33.6 % (37.0-47.0); HEMOGLOBIN 11.1 gm/dL (12.0-15.0); MCH 31.2 pg (26.0-34.0); MCV 94.3 fL (80.0-100.0); MPV 7.2 fl. (7.2-11.1); NUCLEATED RBCS 0 /100WBC; PLATELET COUNT* 382 thou/uL (150-400); RBC 3.57 mil/uL (4.20-5.00); RDW-CV 14.2 % (10.5-14.5)
[2017-09-30 16:12] LABS: ABSOLUTE EOSINOPHILS 0.2 thou/uL (0.0-0.7); ABSOLUTE LYMPHOCYTES 1.5 thou/uL (0.8-5.3); ABSOLUTE MONOCYTES 0.6 thou/uL (0.0-1.2); ABSOLUTE NEUTROPHILS 12.8 thou/uL (1.6-8.1); PLATELET ESTIMATE ADEQUATE
--- NOTE | 2017-09-30 16:20 | 2DMMODE ---
[place] [address] 2 D/M-MODE ECHOCARDIOGRAM Name: COURTNEY RUSH Room: [address] Sweetie#: [id number] Admission: 09/29/17 Attend Phys: Bereket Garcia Discharge: Date of : 47 Date of Service: 09/30/17 1619 Report #: [id number] THIS REPORT FOR: //name// APPROVED REPORT Study performed: 09/30/2017 15:16:00 EXAM: Comprehensive 2D, Doppler, and color-flow Echocardiogram Patient Location: In-Patient Room #: [facility] Status: routine BSA: 1.93 HR: 92 bpm BP: 120/69 mmHg Rhythm: NSR Other Information Study Quality: Good Indications CAD Chest Pain 2D Dimensions LVEF(%): 51.92 (>50%) IVSd: 19.74 (7-11mm) LVOT Diam: 19.76 (18-24mm) LVDd: 35.53 mm PWd: 11.32 (7-11mm) Ascending Ao: 33.49 (22-36mm) LVDs: 26.32 (25-40mm) Aortic Root: 33.74 mm Osborne's LVEF: 51.92 % Volumes Left Atrial Volume (Systole) LA ESV Index: 16.10 mL/m2 Aortic Valve AoV Peak Goldy.: 1.19 m/s AO Peak Gr.: 5.62 mmHg LVOT Max P.10 mmHg AO Mean Gr.: 3.23 mmHg LVOT Mean P.65 mmHg LVOT Max V: 1.33 m/s AO V2 VTI: 16.95 cm LVOT Mean V: 0.88 m/s RANJAN (VTI): 4.29 cm2 LVOT V1 VTI: 23.70 [place] [address] 2 D/M-MODE ECHOCARDIOGRAM Name: COURTNEY RUSH Room: [address] M.R.#: [id number] Admission: 09/29/17 Attend Phys: Bereket Garcia Discharge: Date of : 47 Date of Service: 09/30/17 1619 Report #: [id number] E/A Ratio: 0.48 MV Decel. Time: 258.99 ms MV E Max Goldy.: 0.39 m/s MV PHT: 75.11 ms MVA (PHT): 2.93 cm2 TDI E/Lateral E': 5.57 E/Medial E': 5.57 Medial E' Goldy.: 0.07 m/s Lateral E' Goldy.: 0.07 m/s Pulmonary Valve PV Peak Goldy.: 1.04 m/s PV Peak Gr.: 4.32 mmHg Tricuspid Valve TR Peak Gr.: 24.54 mmHg RVSP: 29.00 mmHg Left Ventricle The left ventricle is normal size. There is normal LV segmental wall motion. Moderate concentric left ventricular hypertrophy. Left ventricular systolic function is hyperdynamic. LVEF is >70%. Grade I - abnormal relaxation pattern. Right Ventricle The right ventricle is normal size. The right ventricular systolic function is normal. Atria The left atrium size is normal. The atrial septum is aneurysmal. The right atrium size is normal. Aortic Valve The aortic valve is normal in structure. No aortic regurgitation is present. There is no aortic valvular stenosis. Mitral Valve The mitral valve is normal in structure. There is no mitral valve regurgitation noted. No evidence of mitral valve stenosis. Tricuspid Valve The tricuspid valve is normal in structure. Trace tricuspid regurgitation. The RVSP is 30-35 mmHg. Pulmonic Valve The pulmonary valve is normal in structure. [place] [address] 2 D/M-MODE ECHOCARDIOGRAM Name: COURTNEY RUSH Room: [address] M.RAlbert#: [id number] Admission: 09/29/17 Attend Phys: Bereket Garcia Discharge: Date of : 47 Date of Service: 09/30/17 1619 Report #: [id number] Great Vessels The aortic root is normal in size. IVC is normal in size and collapses with >50% inspiration Pericardium There is no pericardial effusion. <Conclusion> The left ventricle is normal size. Moderate concentric left ventricular hypertrophy. Left ventricular systolic function is hyperdynamic. LVEF is >70%. Grade I - abnormal relaxation pattern. The atrial septum is aneurysmal. Trace tricuspid regurgitation. The RVSP is 30-35 mmHg. <ELECTRONICALLY SIGNED> By: Luis Diego MD, FACC 09/30/17 1619 18 18 Luis Diego MD, FACC /INF
[2017-09-30] MEDS ORDERED: LISINOPRIL-HCT1 EAC1 PO (18:34)
--- NOTE | 2017-09-30 20:00 | NUR ---
PT'S IVF BOLUS COMPLETED. ORTHO'S CHECKED AND CHARTED. DROP NOTED IN BP FROM LYING TO SITTING AND SITTING TO STANDING. HR INCREASED WELL. PT DENIED ANY DIZZINESS OR NAUSEA, DENIED HAVING ANY SYMPTOMS. PT INSISTED ON D/C'ING TONIGHT. EDUCATED ON SLOW ACTIVITY FROM SITTING TO STANDING.
--- NOTE | 2017-09-30 20:26 | NUR ---
REVIEWED D/C PAPERWORK WITH PT. PT DENIED HAVING ANY QUESTIONS/CONCERNS. SCRIPT GIVEN TO PT. TELE MONITOR AND IV D/C'ED. TAKEN BY W/C TO FRONT ENTRANCE BY STAFF WITH BELONGINGS AND LEFT IN PERSONAL VEHICLE.
--- NOTE | 2017-10-01 12:23 | D ---
[address] [address] DISCHARGE SUMMARY Name: FLAVIO RUSHICE Bereket Room: [address] Cori Pitt#: [id number] Admission: 09/29/17 Attend Phys: Joseph Lynch MD, Discharge: 09/30/17 Date of : 47 Report #: [id number] THIS REPORT FOR: //name// CC: Joseph Littlea Coby DATE OF SERVICE: 09/30/2017 FINAL DISCHARGE DIAGNOSES: 1. Multivessel coronary artery disease. 2. Status post recent percutaneous coronary intervention of the right coronary artery. 3. Status post unsuccessful attempt at recanalization of a chronic total occlusion of the distal circumflex. 4. Type 2 diabetes mellitus. 5. Hyperlipidemia. 6. Hypertension. 7. Bilateral carotid disease. 8. Drug rash. PROCEDURES: 09/29/2017 -- left heart catheterization, selective coronary arteriography, and attempted percutaneous coronary intervention of a chronic total occlusion of the distal circumflex. I was able to traverse this with a wire, but unable to recanalize the distal circumflex. HOSPITAL COURSE: The patient is a pleasant 71-year-old female with complex coronary artery disease, presenting with unstable angina and an abnormal stress test. Approximately 2 weeks ago, she underwent stenting of the right coronary artery with 4 drug-eluting stents deployed with a good angiographic result. She was also noted to have chronic total occlusion of the distal circumflex. She had modest mid LAD narrowing. In this setting, I elected to proceed with recatheterization on 09/29/2017 to define current anatomic circumflex. There were widely patent right coronary stents without significant narrowing. She continued to demonstrate chronic total occlusion of the distal circumflex. I was able to traverse this lesion with an 0.014 Fielder XT wire, but was unable to pass a FineCross or Turnpike LP catheters across this. I was also unable to traverse this with a 1.2 x 8 mm mini Trek balloon. Thus, I was unable to recanalize the chronic total occlusion of the distal circumflex despite wiring it. She did well post-procedurally without any symptoms related to the effort. She did develop a rash and I questioned whether this is related to contrast administration as she had one subsequent to the prior catheterization. It was also the possibility that it is one of her drugs, though she was switched from Brilinta to Effient and has developed a rash on both. At this point, [place] [address] DISCHARGE SUMMARY Name: COURTNEY RUSH Room: [address] Cori Pitt#: [id number] Admission: 09/29/17 Attend Phys: Joseph Lynch MD, Discharge: 09/30/17 Date of : 47 Report #: [id number] most likely that it is related to the contrast administration. She received a Medrol Dosepak and antihistamines. LABORATORY DATA: On 09/30 revealed a sodium of 133, potassium 4.1, BUN 24, creatinine 1.0, glucose 144. Hemoglobin 11.1, white blood cell count 16,100 with 206,000 platelets. The patient ambulated in the hallways without difficulty and there was good hemostasis at the right femoral site of catheterization. DISCHARGE MEDICATIONS: She was discharged to home in stable condition on 09/30/2017 on aspirin 81 mg daily, atorvastatin 20 mg at bedtime, vitamin D3 5000 units daily, metformin 500 mg b.i.d. to be resumed on 10/02, pantoprazole 40 mg daily, prasugrel or Effient 10 mg daily, and lisinopril/hydrochlorothiazide 20/12.5 daily. She is also receiving a Medrol Dosepak and antihistamines as required. She is to receive p.r.n. sublingual nitroglycerin if needed. I will plan to see the patient in followup on 10/27/2017 at 1340 hours at the [facility] office. Thus, the patient is discharged to home in stable condition on the aforementioned medications with followup as outlined above. <ELECTRONICALLY SIGNED> By: Joseph Lynch MD, [facility] 10/01/17 1223 1102 [id number] Lynch MD, FAC /nt
== END 2017-09-30 20:25 | disposition home or self-care (01) ==
LOC: M.CL 11:57 → M.TBA-ER 16:21 → M.2W 16:21
PROVIDERS: Nurse Practitioner Family; ADMIT Internal Medicine
DX: I25.110 Atherosclerotic heart disease of native coronary artery with unstable angina pectoris (principal); I10 Essential (primary) hypertension; I73.9 Peripheral vascular disease, unspecified; E11.9 Type 2 diabetes mellitus without complications; I65.23 Occlusion and stenosis of bilateral carotid arteries; E78.5 Hyperlipidemia, unspecified; L27.0 Generalized skin eruption due to drugs and medicaments taken internally; F17.210 Nicotine dependence, cigarettes, uncomplicated; Z95.5 Presence of coronary angioplasty implant and graft; Z90.89 Acquired absence of other organs; Z98.890 Other specified postprocedural states; Z90.710 Acquired absence of both cervix and uterus

== ENCOUNTER → 2018-01-26 | Outpatient (CLI) | payer OTHER, SELFPAY ==
[~2018-01-26] MED LIST changes: +XANAX 0.25 MG0.25 MG PO
== END ==
LOC: M.ULTRA 09:01
DX: M79.604 Pain in right leg (principal); M79.605 Pain in left leg

== ENCOUNTER 2018-02-10 10:21 | Observation (INO) | payer OTHER, SELFPAY ==
[~2018-02-10] VITALS: Ht 162.6 cm; Wt 94.3 kg
--- NOTE | ~2018-02-10 | H ---
[address] [address] HISTORY AND PHYSICAL Name: COURTNEY RUSH Room: [address] Cori Pitt#: [id number] Admission: 02/10/18 Attend Phys: Harry Mckeon Discharge: 02/11/18 Date of : 47 Report #: [id number] THIS REPORT FOR: //name// Please refer to the History and Physical performed in the physician's office. By: 0648Medical Records Staff RACHAEL /ALIRIO
[~2018-02-10 10:21] MED LIST changes: -XANAX 0.25 MG0.25 MG PO
[2018-02-10 11:22] LABS: HEMATOCRIT 38.2 % (37.0-47.0); HEMOGLOBIN 12.3 gm/dL (12.0-15.0); MCH 27.9 pg (26.0-34.0); MCHC 32.2 g/dL (28.0-37.0); MCV 86.4 fL (80.0-100.0); MPV 7.7 fl. (7.2-11.1); RBC 4.42 mil/uL (4.20-5.00); RDW-CV 15.6 % (10.5-14.5); WBC 9.7 thou/uL (4.0-11.0)
[2018-02-10 11:34] LABS: APTT 26.5 Seconds (25.0-31.3); PROTIME 10.3 Seconds (9.20-11.50)
[2018-02-10 11:35] LABS: CALCIUM 10.1 mg/dL (8.5-10.1); CREATININE 1.2 mg/dL (0.6-1.3); POTASSIUM 4.2 mmol/L (3.5-5.1)
[2018-02-10] MEDS ORDERED: XANAX 0.25 MG0.25 MG PO (11:35)
[2018-02-10 11:38] VITALS: BP 147/81; BP 149/78
[2018-02-10 15:45] VITALS: BP 166/65
[2018-02-11] VITALS: BP 118/58; BP 127/61
[2018-02-11 04:00] VITALS: BP 100/54; BP 112/60
[2018-02-11 04:59] LABS: HEMATOCRIT 32.1 % (37.0-47.0); HEMOGLOBIN 10.4 gm/dL (12.0-15.0); MCH 28.3 pg (26.0-34.0); MCHC 32.5 g/dL (28.0-37.0); MPV 7.9 fl. (7.2-11.1); RBC 3.69 mil/uL (4.20-5.00); RDW-CV 15.4 % (10.5-14.5); WBC 15.9 thou/uL (4.0-11.0)
[2018-02-11 05:24] LABS: CALCIUM 9.7 mg/dL (8.5-10.1); POTASSIUM 4.4 mmol/L (3.5-5.1)
[2018-02-11 08:30] VITALS: BP 127/67
[2018-02-11 10:42] VITALS: BP 127/67
[2018-02-11 12:02] VITALS: BP 131/65
--- NOTE | 2018-02-14 11:13 | OP ---
[facility] [address] [place] [address] OPERATIVE REPORT Name: ADRICOURTNEY Bereket Room: [address] Cori Pitt#: [id number] Admission: 02/10/18 Attend Phys: Harry Mckeon Discharge: 02/11/18 Date of : 47 Report #: [id number] THIS REPORT FOR: //name// CC: Aurelio Tenorio DATE OF SERVICE: 02/10/2018 PREOPERATIVE DIAGNOSIS: Peripheral vascular disease with weakness in the right lower extremity. POSTOPERATIVE DIAGNOSIS: Peripheral vascular disease with weakness in the right lower extremity. SURGEON: Aurelio Alvarez DO. GLASS SMOOTHER: None. PROCEDURE: 1. Ultrasound-guided access, left common femoral artery. 2. Aortogram. 3. Right lower extremity angiogram with catheter position third order. 4. Atherectomy right superficial femoral artery. 5. Angioplasty and stent of right popliteal artery and superficial femoral artery with Bard 6 mm x 170 and 6 mm x 120 LifeStents. 6. Limited angiogram, left lower extremity. 7. Angio-Seal closure of the left common femoral artery. INDICATIONS FOR THE PROCEDURE AND CONSENT: The patient is a 72-year-old female who presented to the office with severe weakness in the right leg, making her unable to do family activities and keep up with walking. ABIs were performed, which did demonstrate severe peripheral vascular disease in the right lower extremity. Recommendation for right lower extremity angiogram was made. Risks and benefits were discussed, infection, bleeding, limb loss, non-improvement in weakness despite intervention, need for surveillance of the intervention. The patient wished to proceed, was consented and scheduled. PROCEDURE IN DETAIL: After timeout was performed, the patient was placed in supine position with sterile prep and drape of the anterior abdomen, bilateral groins, bilateral thighs. Ultrasound was utilized to identify the left common femoral artery and Seldinger technique used to place 6-Djiboutian sheath without difficulty. Glidewire Advantage and UF catheter were advanced into the infrarenal aorta and aortogram was performed. This demonstrated the aorta to be widely patent. There was a large infrarenal abdominal aortic aneurysm, which appeared to have a fairly lengthy neck in the infrarenal position. The bilateral common internal and external iliac arteries [place] [address] OPERATIVE REPORT Name: COURTNEY RUSH Room: [address] Cori Pitt#: [id number] Admission: 02/10/18 Attend Phys: Harry Mckeon Discharge: 02/11/18 Date of : 47 Report #: [id number] without flow limitation, stenosis or aneurysm. The Glidewire Advantage and UF catheter was advanced into the right external iliac artery and the lateral extremity angiogram performed from this position. This demonstrated the common femoral profunda and proximal superficial femoral artery to be fairly free of disease, although some calcification visualized. The distal superficial right artery was occluded with reconstitution above the knee. There was non-flow limiting stenosis above this area of occlusion with collateral flow. The infra and geniculate arteries all appeared widely patent to the ankle without any flow limitation or stenosis. DESCRIPTION OF PROCEDURE: At this point, the patient was systemically heparinized with 6000 units of heparin with intention to treat. A Glidewire Advantage was advanced into the proximal superficial artery and a 6-Djiboutian sheath exchanged for up and over 6-Djiboutian sheath. The chronic total occlusion appeared to be the best treated with Crosser atherectomy and the Crosser device was set up on the backtable and advanced into position and activated at the top cap. They appeared to take good course through the occlusion, but distally failed to reenter initially. A couple of passes were performed from above the top cap towards the Crosser device with the assistance of intermittent angiography for location. Eventually, I was able to advance an 0.018 Glidewire Advantage through the area at the Crosser, it opened and into the distal popliteal artery and then angioplastied the occlusion with a 6 mm Bard [place] angioplasty balloon after confirming a true luminal position. I then performed additional angiography to determine the reentry point of the dissection that was visualized on some images. Please see saved images. Once I identified this area, I obtained LifeStents over wire and advanced into position and deployed them beyond the reentry tear and all the way back to the area with complete total occlusion. There was also some non-flow limiting stenosis approximately 50% above this area in which the stent was able to cover as well. Once this was completed, I post-dilated with 6 mm balloon and performed angiography which demonstrated excellent radiographic result without flow limitation stenosis and no change in the distal vascularization. I then retracted the sheath into the left external iliac artery and performed a limited angiogram, left lower extremity, which demonstrated generally patent vessels in the left lower extremity without occlusion or significant stenosis. The access point appeared to be the common femoral vessel and appropriate for Angio-Seal closure. A 6-Djiboutian Angio-Seal was selected and deployed in standard fashion. Pressure was held for hemostasis. The patient tolerated the procedure well. All needle and sponge counts were correct. The patient transferred to recovery in stable condition. Because the patient is at high risk for bleeding due to being on multiple [facility] [address] [place] [address] OPERATIVE REPORT Name: COURTNEY RUSH Room: [address] Cori Pitt#: [id number] Admission: 02/10/18 Attend Phys: Harry Mckeon Discharge: 02/11/18 Date of : 47 Report #: [id number] anticoagulants and has a history of bleeding after cardiac catheterization, the patient will stay overnight for observation. <ELECTRONICALLY SIGNED> By: Héctor Boudreaux DO 02/14/18 1113 1759 [id number] Alvarez DO /nt
== END 2018-02-11 12:30 | disposition home or self-care (01) ==
LOC: M.INT 10:21 → M.TBA 16:10 → M.2W 16:14
PROVIDERS: ADMIT Surgery
DX: E11.51 Type 2 diabetes mellitus with diabetic peripheral angiopathy without gangrene (principal); I70.211 Atherosclerosis of native arteries of extremities with intermittent claudication, right leg; I10 Essential (primary) hypertension; G35 Multiple sclerosis; Z90.710 Acquired absence of both cervix and uterus; Z90.49 Acquired absence of other specified parts of digestive tract; Z95.5 Presence of coronary angioplasty implant and graft; Z79.82 Long term (current) use of aspirin; Z79.899 Other long term (current) drug therapy; Z87.891 Personal history of nicotine dependence; Z79.01 Long term (current) use of anticoagulants

== ENCOUNTER → 2018-03-29 | Outpatient (CLI) | payer OTHER, SELFPAY ==
[~2018-03-29] MED LIST changes: +XANAX 0.25 MG0.25 MG PO
[2018-03-29 12:32] LABS: CREATININE 1.1 mg/dL (0.6-1.3)
== END ==
LOC: M.LAB 03-24 13:00 → M.CT 03-24 13:00 → M.LAB 12:03 → M.CT 13:30
PROVIDERS: Surgery
DX: I71.4 Abdominal aortic aneurysm, without rupture (principal); I70.0 Atherosclerosis of aorta; K59.00 Constipation, unspecified; M25.78 Osteophyte, vertebrae; Z90.49 Acquired absence of other specified parts of digestive tract

== ENCOUNTER → 2018-04-26 | Outpatient (CLI) | payer OTHER, SELFPAY | LOC: M.RAD 09:31 | DX: M47.897 Other spondylosis, lumbosacral region (principal) ==

== ENCOUNTER → 2018-05-02 | Outpatient (CLI) | payer OTHER ==
--- NOTE | 2018-05-02 11:40 | 2DMMODE ---
[place] [address] 2 D/M-MODE ECHOCARDIOGRAM Name: COURTNEY RUSH Room: [facility]#: [id number] Admission: 05/02/18 Attend Phys: Bereket Garcia Discharge: Date of : 47 Date of Service: 05/02/18 1139 Report #: [id number] THIS REPORT FOR: //name// APPROVED REPORT Study performed: 05/02/2018 09:14:39 EXAM: Comprehensive 2D, Doppler, and color-flow Echocardiogram Patient Location: Out-Patient BSA: 1.97 HR: 72 bpm BP: 120/70 mmHg Other Information Study Quality: Good Indications CAD Hypertension/HDD 2D Dimensions IVSd: 13.19 (7-11mm) LVOT Diam: 20.11 (18-24mm) LVDd: 39.51 mm PWd: 9.83 (7-11mm) Ascending Ao: 32.47 (22-36mm) LVDs: 28.85 (25-40mm) Aortic Root: 37.21 mm Volumes Left Atrial Volume (Systole) LA ESV Index: 14.90 mL/m2 Aortic Valve AoV Peak Goldy.: 1.09 m/s AO Peak Gr.: 4.73 mmHg LVOT Max P.85 mmHg AO Mean Gr.: 2.79 mmHg LVOT Mean P.92 mmHg LVOT Max V: 0.98 m/s AO V2 VTI: 21.16 cm LVOT Mean V: 0.64 m/s RANJAN (VTI): 2.97 cm2 LVOT V1 VTI: 19.77 cm Mitral Valve E/A Ratio: 0.42 MV Decel. Time: 435.11 ms MV E Max Goldy.: 0.34 m/s MV PHT: 126.18 [place] [address] 2 D/M-MODE ECHOCARDIOGRAM Name: COURTNEY RUSH Room: [facility]#: [id number] Admission: 05/02/18 Attend Phys: Bereket Garcia Discharge: Date of : 47 Date of Service: 05/02/18 1139 Report #: [id number] MVA (PHT): 1.74 cm2 TDI E/Lateral E': 4.86 E/Medial E': 4.86 Medial E' Goldy.: 0.07 m/s Lateral E' Goldy.: 0.07 m/s Pulmonary Valve PV Peak Goldy.: 0.73 m/s PV Peak Gr.: 2.12 mmHg Left Ventricle The left ventricle is normal size. There is normal LV segmental wall motion. There is normal left ventricular wall thickness. Left ventricular systolic function is normal. The left ventricular ejection fraction is within the normal range. LVEF is 55-60%. Grade I - abnormal relaxation pattern. Right Ventricle The right ventricle is normal size. The right ventricular systolic function is normal. Atria The left atrium size is normal. The right atrium size is normal. Aortic Valve The aortic valve is normal in structure. No aortic regurgitation is present. There is no aortic valvular stenosis. Mitral Valve The mitral valve is normal in structure. There is no mitral valve regurgitation noted. No evidence of mitral valve stenosis. Tricuspid Valve The tricuspid valve is normal in structure. There is no tricuspid valve regurgitation noted. Pulmonic Valve The pulmonary valve is normal in structure. There is no pulmonic valvular regurgitation. Great Vessels The aortic root is normal in size. IVC is normal in size and collapses >50% with [place] [address] 2 D/M-MODE ECHOCARDIOGRAM Name: COURTNEY RUSH Room: [facility]#: [id number] Admission: 05/02/18 Attend Phys: Bereket Garcia Discharge: Date of : 47 Date of Service: 05/02/18 1139 Report #: [id number] There is no pericardial effusion. <Conclusion> LVEF is 55-60%. <ELECTRONICALLY SIGNED> By: Jelani Berg MD, [facility] 05/02/18 1139 1139 38 Jelani Berg MD, FACC /INF
== END ==
LOC: M.CRD 08:59
DX: I25.10 Atherosclerotic heart disease of native coronary artery without angina pectoris (principal); I10 Essential (primary) hypertension

== ENCOUNTER → 2018-05-11 | Outpatient (CLI) | payer OTHER | LOC: M.MRI 07:02 | DX: M43.16 Spondylolisthesis, lumbar region (principal); M48.07 Spinal stenosis, lumbosacral region; N28.1 Cyst of kidney, acquired; M51.27 Other intervertebral disc displacement, lumbosacral region; G83.10 Monoplegia of lower limb affecting unspecified side ==

== ENCOUNTER → 2018-06-07 | Outpatient (CLI) | payer OTHER | LOC: M.ULTRA 09:29 | DX: N28.1 Cyst of kidney, acquired (principal) ==

== ENCOUNTER → 2018-11-13 | Outpatient (CLI) | payer OTHER, SELFPAY ==
[2018-11-13 10:22] LABS: HEMATOCRIT 40.3 % (37.0-47.0); HEMOGLOBIN 12.9 gm/dL (12.0-15.0); MCHC 31.9 g/dL (28.0-37.0); MCV 87.8 fL (80.0-100.0); MPV 7.6 fl. (7.2-11.1); RBC 4.59 mil/uL (4.20-5.00); RDW-CV 14.6 % (10.5-14.5); WBC 6.7 thou/uL (4.0-11.0)
[2018-11-13 10:34] LABS: ALBUMIN 3.8 g/dL (3.4-5.0); ALKALINE PHOSPHATASE 67 U/L (46-116); ANION GAP 10 mmol/L (7-16); BUN 25 mg/dL (7-18); CALCIUM 10.2 mg/dL (8.5-10.1); CHLORIDE 100 mmol/L (98-107); CHOLESTEROL 166 mg/dL (<200); CO2 28 mmol/L (21-32); CREATININE 1.1 mg/dL (0.6-1.3); GLUCOSE 167 mg/dL (70-99); HDL CHOLESTEROL 40 mg/dL (>40); LDL CHOLESTEROL 77 mg/dL (<100); POTASSIUM 4.2 mmol/L (3.5-5.1); SERUM ASSESSMENT Clear; SGOT 19 U/L (15-37); SGPT 32 U/L (30-65); SODIUM 138 mmol/L (136-145); TC:HDL 4.2 Ratio (Not establshd); TOTAL BILIRUBIN 0.3 mg/dL (<0.1-1.0); TRIGLYCERIDE 249 mg/dL (<150); VLDL 50 mg/dL (<40)
[2018-11-14 02:09] LABS: GLYCOHEMOGLOBIN (HGB A1C) 7.7 % (4.8-5.6)
[2018-11-15 13:23] LABS: ANA INTERPRETATION Negative (Negative)
== END ==
LOC: M.LAB 09:50
PROVIDERS: Psychiatry & Neurology Neuromuscular Medicine
DX: Z11.59 Encounter for screening for other viral diseases (principal); G35 Multiple sclerosis; E11.9 Type 2 diabetes mellitus without complications; E78.2 Mixed hyperlipidemia

== ENCOUNTER → 2018-12-20 | Outpatient (CLI) | payer OTHER, SELFPAY ==
[2018-12-20 14:17] LABS: ALBUMIN 3.7 g/dL (3.4-5.0); CALCIUM 9.6 mg/dL (8.5-10.1); CREATININE 1.2 mg/dL (0.6-1.3); POTASSIUM 3.9 mmol/L (3.5-5.1); TOTAL BILIRUBIN 0.2 mg/dL (<0.1-1.0); TOTAL PROTEIN 7.2 g/dL (6.4-8.2)
[2018-12-20 21:15] LABS: ABSOLUTE BASOPHILS 0.1 thou/uL (0.0-0.2); ABSOLUTE EOSINOPHILS 0.1 thou/uL (0.0-0.7); ABSOLUTE LYMPHOCYTES 1.7 thou/uL (0.8-5.3); ABSOLUTE MONOCYTES 0.5 thou/uL (0.0-1.2); ABSOLUTE NEUTROPHILS 6.5 thou/uL (1.6-8.1); BASOPHILS 0.8 %; EOSINOPHILS 1.4 %; HEMATOCRIT 37.6 % (37.0-47.0); HEMOGLOBIN 12.4 gm/dL (12.0-15.0); LYMPHOCYTES 18.7 %; MCH 30.6 pg (26.0-34.0); MCHC 33.1 g/dL (28.0-37.0); MCV 92.6 fL (80.0-100.0); MONOCYTES 6.2 %; MPV 11.2 fl. (7.2-11.1); NUCLEATED RBCS 0 /100WBC; PLATELET COUNT* 316 thou/uL (150-400); POLYS 72.9 %; RBC 4.06 mil/uL (4.20-5.00); RDW-CV 14.7 % (10.5-14.5); WBC 8.9 thou/uL (4.0-11.0)
[2018-12-21 14:09] LABS: ANA INTERPRETATION Negative (Negative)
== END ==
LOC: M.MRI 11-08 13:20 → M.LAB 11-15 12:30 → M.MRI 11-15 13:30
PROVIDERS: Psychiatry & Neurology Neuromuscular Medicine
DX: M47.812 Spondylosis without myelopathy or radiculopathy, cervical region (principal); M48.02 Spinal stenosis, cervical region; I67.2 Cerebral atherosclerosis; G31.9 Degenerative disease of nervous system, unspecified; G35 Multiple sclerosis; E11.51 Type 2 diabetes mellitus with diabetic peripheral angiopathy without gangrene; I25.10 Atherosclerotic heart disease of native coronary artery without angina pectoris; E78.5 Hyperlipidemia, unspecified; E55.9 Vitamin D deficiency, unspecified; F32.9 Major depressive disorder, single episode, unspecified; F17.200 Nicotine dependence, unspecified, uncomplicated; Z90.49 Acquired absence of other specified parts of digestive tract; Z95.5 Presence of coronary angioplasty implant and graft; Z90.710 Acquired absence of both cervix and uterus; Z79.82 Long term (current) use of aspirin; Z79.899 Other long term (current) drug therapy

== ENCOUNTER → 2018-12-21 | Outpatient (CLI) | payer OTHER, SELFPAY | LOC: M.MRI 11-17 11:30 | DX: M47.814 Spondylosis without myelopathy or radiculopathy, thoracic region (principal); G35 Multiple sclerosis; E11.9 Type 2 diabetes mellitus without complications ==

== ENCOUNTER → 2019-12-18 | Outpatient (CLI) | payer OTHER ==
--- NOTE | 2019-12-18 16:07 | 2DMMODE ---
[place] [address] 2 D/M-MODE ECHOCARDIOGRAM Name: COURTNEY RUSH Bereket Room: [facility]#: [id number] Admission: 12/18/19 Attend Phys: Bereket Garcia Discharge: Date of : 47 Date of Service: 12/18/19 1606 Report #: [id number] THIS REPORT FOR: cc: Julia Ortiz MD, Lin W. MD Liston, Michael J. MD [facility] ~ APPROVED REPORT Study performed: 12/18/2019 14:41:22 EXAM: Comprehensive 2D, Doppler, and color-flow Echocardiogram Patient Location: Out-Patient BSA: 1.91 HR: 65 bpm BP: 140/86 mmHg Other Information Study Quality: Fair Indications CAD 2D Dimensions IVSd: 14.63 (7-11mm) LVOT Diam: 20.89 (18-24mm) LVDd: 41.24 mm PWd: 12.88 (7-11mm) Ascending Ao: 31.78 (22-36mm) LVDs: 25.89 (25-40mm) Aortic Root: 31.97 mm Volumes Left Atrial Volume (Systole) LA ESV Index: 19.20 mL/m2 Aortic Valve AoV Peak Goldy.: 1.06 m/s AO Peak Gr.: 4.47 mmHg LVOT Max P.73 mmHg AO Mean Gr.: 2.75 mmHg LVOT Mean P.65 mmHg LVOT Max V: 0.97 m/s AO V2 VTI: 23.17 cm LVOT Mean V: 0.58 m/s RANJAN (VTI): 2.91 cm2 LVOT V1 VTI: 19.64 cm Mitral Valve E/A Ratio: 0.51 [place] [address] 2 D/M-MODE ECHOCARDIOGRAM Name: COURTNEY RUSH Room: [facility]#: [id number] Admission: 12/18/19 Attend Phys: Bereket Garcia Discharge: Date of : 47 Date of Service: 12/18/19 1606 Report #: [id number] MV Decel. Time: 337.73 ms MV E Max Goldy.: 0.41 m/s MV PHT: 97.94 ms MVA (PHT): 2.25 cm2 TDI E/Lateral E': 5.13 E/Medial E': 4.10 Medial E' Goldy.: 0.10 m/s Lateral E' Goldy.: 0.08 m/s Pulmonary Valve PV Peak Goldy.: 0.85 m/s PV Peak Gr.: 2.89 mmHg Tricuspid Valve RAP Estimate: 5.00 mmHg TR Peak Gr.: 14.54 mmHg RVSP: 19.54 mmHg PA Pressure: 19.54 mmHg Left Ventricle The left ventricle is normal size. There is normal LV segmental wall motion. Mild concentric left ventricular hypertrophy. The left ventricular systolic function is normal. LVEF is 55-60%. Grade I - abnormal relaxation pattern. Right Ventricle The right ventricle is normal size. The right ventricular systolic function is normal. Atria The left atrium size is normal. The right atrium size is normal. Aortic Valve The aortic valve is normal in structure. No aortic regurgitation is present. There is no aortic valvular stenosis. Mitral Valve The mitral valve is normal in structure. Mild mitral regurgitation. No evidence of mitral valve stenosis. Tricuspid Valve The tricuspid valve is normal in structure. Mild tricuspid regurgitation. No pulmonary hypertension. Pulmonic Valve The pulmonary valve is normal in structure[place] [address] 2 D/M-MODE ECHOCARDIOGRAM Name: COURTNEY RUSH Room: [facility]#: [id number] Admission: 12/18/19 Attend Phys: Bereket Garcia Discharge: Date of : 47 Date of Service: 12/18/19 1606 Report #: [id number] regurgitation. Great Vessels The aortic root is normal in size. IVC is normal in size and collapses >50% with inspiration. Pericardium There is no pericardial effusion. <Conclusion> The left ventricle is normal size. Mild concentric left ventricular hypertrophy. The left ventricular systolic function is normal. LVEF is 55-60%. Grade I - abnormal relaxation pattern. There is normal LV segmental wall motion. Mild mitral regurgitation. Mild tricuspid regurgitation. No pulmonary hypertension. IVC is normal in size and collapses >50% with inspiration. <ELECTRONICALLY SIGNED> By: Luis Diego MD, FACC 12/18/19 1606 1606 1606 Luis Diego MD, FACC /INF
[2019-12-18 16:31] LABS: ABSOLUTE BASOPHILS 0.1 thou/uL (0.0-0.2); ABSOLUTE EOSINOPHILS 0.1 thou/uL (0.0-0.7); ABSOLUTE MONOCYTES 0.5 thou/uL (0.0-1.2); ABSOLUTE NEUTROPHILS 5.8 thou/uL (1.6-8.1); EOSINOPHILS 1.7 %; HEMATOCRIT 39.5 % (37.0-47.0); HEMOGLOBIN 13.1 gm/dL (12.0-15.0); LYMPHOCYTES 23.3 %; MCH 29.2 pg (26.0-34.0); MCHC 33.2 g/dL (28.0-37.0); MCV 88.1 fL (80.0-100.0); MONOCYTES 5.7 %; MPV 7.3 fl. (7.2-11.1); NUCLEATED RBCS 0 /100WBC; PLATELET COUNT* 281 thou/uL (150-400); POLYS 68.3 %; RBC 4.48 mil/uL (4.20-5.00); RDW-CV 15.7 % (10.5-14.5); WBC 8.5 thou/uL (4.0-11.0)
[2019-12-18 16:45] LABS: CHOLESTEROL 148 mg/dL (<200); HDL CHOLESTEROL 44 mg/dL (>40); LDL CHOLESTEROL 70 mg/dL (<100); TC:HDL 3.4 Ratio (Not establshd); TRIGLYCERIDE 171 mg/dL (<150); VLDL 34 mg/dL (<40)
[2019-12-18 16:46] LABS: SERUM ASSESSMENT Clear
--- NOTE | 2019-12-18 16:49 | CARDNUC ---
[place] [address] CARDIAC NUCLEAR IMAGING REPORT Name: COURTNEY RUSH Bereket Room: [facility]#: [id number] Admission: 12/18/19 Attend Phys: Bereket Garcia Discharge: Date of : 47 Date of Service: 12/18/19 1649 Report #: [id number] THIS REPORT FOR: cc: Julia Ortiz MD, Lin W. MD Liston, Michael J. MD [facility] ~ APPROVED REPORT Imaging Protocol: Rest Tc-99m/Stress Tc-99m 1 day Study performed: 12/18/2019 12:45:00 Indication: Dyspnea, Fatigue Patient Location: Out-Patient Stress Tech: Farida Albarado Stress Nurse: Amber Cates RN NM Tech:DEBBIE Norton Ht: 5 ft 5 in Wt: 191 lbs BSA: 1.94 m2 HR: 75 bpm BP: 140/86 mmHg BMI: 31.78 Medical History Medical History: CAD, PCI Medications: Aspirin, Atorvastatin, Lisinopril, Prasugrel Allergies: Percocet, Iodine, Brilinta Cardiac Risk Factors: Age, Hyperlipidemia, HTN, PVD, Tobacco History (Current/Recent), FHX of CAD, DM Previous Cardiac Procedures: PCI Exercise History: Sedentary Resting Data Rest SPECT myocardial perfusion imaging was performed in supine position 30 minutes following the intravenous injection of 10.1 mCi of Tc-99m Sestamibi. Time of rest injection: 13:15 The images were gated to evaluate regional wall motion and calculate left ventricular ejection fraction. Administration Route: IV Administration Site: Right AC Pharmacologic Stress Pharmacologic stress test was performed by injecting Regadenoson 0.4 mg IV push over 10-15 seconds immediately followed by the intravenous injection of 33.9 mCi of Tc-99m [place] [address] CARDIAC NUCLEAR IMAGING REPORT Name: COURTNEY RUSH [facility] [id number] Admission: 12/18/19 Attend Phys: Bereket Garcia Discharge: Date of : 47 Date of Service: 12/18/19 1649 Report #: [id number] Time of stress injection: 14:50 Administration Route: IV Administration Site: Right AC Heart Rate at time of stress injection: 103 bpm. Gated Stress SPECT was performed 40 minutes after stress injection. The images were gated to evaluate regional wall motion and calculate left ventricular ejection fraction. Prone imaging was performed. Stress Test Details Stress Test: Pharmacologic stress testing performed using 0.4 mg of regadenoson per 5 mL given IV over 10 seconds. Reason for pharmacologic stress test: physical limitation. HR Max Heart Rate (APMHR): 147 bpm Resting HR: 75 bpm Target HR (85% APMHR): 124 bpm Max HR Achieved: 103 bpm % of APMHR: 70 Recovery HR: 86 bpm HR response to stress: Normal HR response to stress BP Resting BP: 140/86 mmHg Max BP: 176/103 mmHg Recovery BP: 167/78 mmHg BP response to stress: Normal blood pressure response to stress. ECG Resting ECG: Sinus Rhythm Stress ECG: Sinus Tachycardia ST Change: Downsloping ST depression Maximum ST Deviation: 1 mm Arrhythmia: None Recovery ECG: Sinus Rhythm Recovery ST Change: None Recovery Arrhythmia: None Clinical Reason for Termination: Completed protocol The patient tolerated Lexiscan infusion without significant cardiac symptoms. Stress ECG Conclusion Baseline twelve-lead EKG shows sinus rhythm without significant ST segment depression. EKGs obtained during Lexisc[place] infusion [place] [address] CARDIAC NUCLEAR IMAGING REPORT Name: COURTNEY RUSH Room: [facility]#: [id number] Admission: 12/18/19 Attend Phys: Bereket Garcia Discharge: Date of : 47 Date of Service: 12/18/19 1649 Report #: [id number] transient [address] segment depression in the lateral leads that resolved fairly quickly in recovery. There were no stress-induced arrhythmias. Study Quality Study: Good Artifact: No artifact Study Data At rest, the left ventricular ejection fraction was 67%.. Post stress, the left ventricular ejection was 69%.. TID = 1.10. Perfusion There is a small in size moderate intensity defect involving the basal to mid inferolateral wall. The defect appears consistent with prior basal inferolateral infarct with mild juni-infarct ischemia. Wall Motion Normal left ventricular wall motion. Nuclear Conclusion ECG Findings: positive for ischemia Clinical Findings: negative for ischemia Nuclear Findings: positive for ischemia Exercise Capacity: not assessed Left Ventricular Function: normal Perfusion images suggest possible small in size basal inferolateral infarct with some mild juni-infarct ischemia. No other significant fixed or reversible defects are identified. Global LV systolic function is normal. There is not a high risk study. <Conclusion> Baseline twelve-lead EKG shows sinus rhythm without significant ST segment depression. EKGs obtained during Lexiscan infusion showed transient [address] segment depression in the lateral leads that resolved fairly quickly in recovery. There were no stress-induced arrhythmias. <ELECTRONICALLY SIGNED> By: Luis Diego MD, FACC 12/18/19 1649 164 48 Luis Diego MD, FACC /INF
[2019-12-19 22:53] LABS: CALCIUM 9.9 mg/dL (8.5-10.1); CREATININE 0.9 mg/dL (0.6-1.3); TOTAL BILIRUBIN 0.2 mg/dL (<0.1-1.0); TOTAL PROTEIN 7.8 g/dL (6.4-8.2)
[2019-12-19 23:06] LABS: POTASSIUM 7.9 mmol/L (3.5-5.1)
== END | disposition home or self-care (01) ==
LOC: M.CRD 12:15 → M.NUC 13:00 → M.CRD 12-20 08:00
PROVIDERS: ATTEND Internal Medicine
DX: I08.1 Rheumatic disorders of both mitral and tricuspid valves (principal); I25.10 Atherosclerotic heart disease of native coronary artery without angina pectoris; I10 Essential (primary) hypertension; Z98.890 Other specified postprocedural states; Z79.899 Other long term (current) drug therapy; Z91.041 Radiographic dye allergy status; Z79.82 Long term (current) use of aspirin

== ENCOUNTER → 2019-12-20 | Outpatient (CLI) | payer OTHER | LOC: M.LAB 12:45 | PROVIDERS: ATTEND Internal Medicine | DX: E87.5 Hyperkalemia (principal) ==

== ENCOUNTER → 2020-10-01 | Outpatient (CLI) | payer OTHER | LOC: M.MRI 09-15 14:30 | PROVIDERS: ATTEND Internal Medicine | DX: M47.27 Other spondylosis with radiculopathy, lumbosacral region (principal); M48.07 Spinal stenosis, lumbosacral region; E11.65 Type 2 diabetes mellitus with hyperglycemia; I25.10 Atherosclerotic heart disease of native coronary artery without angina pectoris; I10 Essential (primary) hypertension; Z68.32 Body mass index [BMI] 32.0-32.9, adult; R00.2 Palpitations ==

== ENCOUNTER 2021-01-04 18:11 | Inpatient (IN) | payer OTHER ==
[~2021-01-04] VITALS: Ht 162.6 cm; Wt 86.2 kg
[2021-01-04 18:18] VITALS: BP 109/57
[2021-01-04 18:40] LABS: HEMATOCRIT 33.9 % (37.0-47.0); HEMOGLOBIN 10.8 gm/dL (12.0-15.0); MCH 27.1 pg (26.0-34.0); MCHC 31.8 g/dL (28.0-37.0); MPV 7.2 fl. (7.2-11.1); NUCLEATED RBCS 0 /100WBC; PLATELET COUNT* 212 thou/uL (150-400); RBC 3.99 mil/uL (4.20-5.00); RDW-CV 15.2 % (10.5-14.5); WBC 33.1 thou/uL (4.0-11.0)
[2021-01-04 18:49] LABS: CALCIUM 8.7 mg/dL (8.5-10.1); CREATININE 1.8 mg/dL (0.6-1.3); POTASSIUM 3.9 mmol/L (3.5-5.1)
[2021-01-04 18:54] LABS: ALBUMIN 2.7 g/dL (3.4-5.0); TOTAL BILIRUBIN 0.3 mg/dL (<0.1-1.0)
[2021-01-04 19:08] LABS: ABSOLUTE MONOCYTES 2.3 thou/uL (0.0-1.2); ABSOLUTE NEUTROPHILS 30.8 thou/uL (1.6-8.1)
[2021-01-04 19:09] LABS: PLATELET ESTIMATE ADEQUATE
[2021-01-04 21:05] LABS: URINE BILIRUBIN NEGATIVE (Negative); URINE BLOOD 1+ (Negative); URINE CLARITY CLEAR; URINE COLOR YELLOW; URINE GLUCOSE-RANDOM NEGATIVE (Negative); URINE KETONES TRACE (Negative); URINE LEUKOCYTES 2+ (Negative); URINE NITRITE POSITIVE (Negative); URINE PROTEIN 1+ (Negative); URINE UROBILINOGEN 0.2 E.U./dl (0.2-1.0)
[2021-01-04 21:18] LABS: BACTERIA >30 Many /HPF (None Seen); HYALINE CASTS 4-10 Moderate /LPF (None Seen); MUCUS None Seen strn/LPF (None Seen); SQUAMOUS 4-10 Moderate /LPF (0-3); WBC CLUMPS Few (None Seen)
[2021-01-04 21:19] LABS: CRYSTALS None Seen /LPF (None Seen); URINE RBC 0-2 Rare /HPF (0-2)
[2021-01-04 21:55] VITALS: BP 108/49
[2021-01-05 01:41] VITALS: BP 93/52
[2021-01-05 06:51] VITALS: BP 118/53
[2021-01-05 09:15] VITALS: BP 118/56
--- NOTE | 2021-01-05 10:44 | EKG ---
[place] [address] ELECTROCARDIOGRAM REPORT Name: COURTNEY RUSH Bereket Room: [address] ADM IN .R.#: [id number] Admission: 01/04/21 Attend Phys: Cristhian Bundy Discharge: Date of : 47 Date of Service: 01/04/21 182 Report #: [id number] THIS REPORT FOR: //name// [facility] ED Test Date: 2021-01-04 Test Time: 18:24:58 Pat Name: COURTNEY RUSH Department: Room: [facility] Gender: F Casing Runner: JOHANN : 1945 Requested By: Kishan Rashid Order Number: [id number] MD: Jelani Berg Measurements Intervals [place] Rate: 98 P: 38 MI: 157 QRS: 23 QRSD: 83 T: 54 QT: 421 QTc: 538 Interpretive Statements Sinus rhythm Probable left atrial enlargement Minimal ST depression, inferior leads Prolonged QT interval Compared to ECG 09/29/2017 12:51:33 ST (T wave) deviation now present Prolonged QT interval now present Electronically Signed On 01-05-2021 10:44:05 CDT by Jelani Berg [email or web address] <ELECTRONICALLY SIGNED> By: Jelani Berg MD, FAC 01/05/21 1044 182 182 Jelani Berg MD, [facility] /EPI
[2021-01-05 12:00] VITALS: BP 153/48
[2021-01-05 16:00] VITALS: BP 152/68
[2021-01-05 20:33] VITALS: BP 150/72
[2021-01-06 04:00] VITALS: BP 164/75
[2021-01-06 11:14] LABS: ABSOLUTE BASOPHILS 0.2 thou/uL (0.0-0.2); ABSOLUTE EOSINOPHILS 0.2 thou/uL (0.0-0.7); ABSOLUTE LYMPHOCYTES 0.9 thou/uL (0.8-5.3); ABSOLUTE MONOCYTES 0.6 thou/uL (0.0-1.2); ABSOLUTE NEUTROPHILS 18.8 thou/uL (1.6-8.1); BASOPHILS 1.1 %; EOSINOPHILS 1.1 %; HEMATOCRIT 32.7 % (37.0-47.0); HEMOGLOBIN 10.2 gm/dL (12.0-15.0); LYMPHOCYTES 4.3 %; MCH 26.7 pg (26.0-34.0); MCHC 31.3 g/dL (28.0-37.0); MCV 85.2 fL (80.0-100.0); MONOCYTES 3.1 %; MPV 9.2 fl. (7.2-11.1); NUCLEATED RBCS 0 /100WBC; PLATELET COUNT* 181 thou/uL (150-400); POLYS 90.4 %; RBC 3.84 mil/uL (4.20-5.00); RDW-CV 15.7 % (10.5-14.5); WBC 20.8 thou/uL (4.0-11.0)
[2021-01-06 11:24] LABS: CALCIUM 8.9 mg/dL (8.5-10.1); CREATININE 0.8 mg/dL (0.6-1.3); POTASSIUM 3.5 mmol/L (3.5-5.1)
[2021-01-06 12:00] VITALS: BP 158/72
[2021-01-06 16:00] VITALS: BP 169/98
[2021-01-06 21:25] VITALS: BP 188/99
[2021-01-06 23:32] VITALS: BP 183/76
[2021-01-07 04:19] VITALS: BP 196/99
[2021-01-07 08:00] VITALS: BP 158/68
[2021-01-07 10:02] LABS: HEMATOCRIT 33.1 % (37.0-47.0); HEMOGLOBIN 10.7 gm/dL (12.0-15.0); MCH 27.2 pg (26.0-34.0); MCHC 32.4 g/dL (28.0-37.0); MCV 83.9 fL (80.0-100.0); MPV 7.6 fl. (7.2-11.1); PLATELET COUNT* 201 thou/uL (150-400); POLYS 85.6 %; RBC 3.95 mil/uL (4.20-5.00); RDW-CV 15.3 % (10.5-14.5); WBC 11.6 thou/uL (4.0-11.0)
[2021-01-07 10:03] LABS: ABSOLUTE EOSINOPHILS 0.1 thou/uL (0.0-0.7); ABSOLUTE LYMPHOCYTES 0.9 thou/uL (0.8-5.3); ABSOLUTE MONOCYTES 0.6 thou/uL (0.0-1.2); BASOPHILS 0.4 %; EOSINOPHILS 0.6 %; LYMPHOCYTES 8.1 %; MONOCYTES 5.3 %; NUCLEATED RBCS 0 /100WBC
[2021-01-07 10:28] LABS: CALCIUM 9.6 mg/dL (8.5-10.1); CREATININE 0.7 mg/dL (0.6-1.3); POTASSIUM 3.2 mmol/L (3.5-5.1)
[2021-01-07] MEDS ORDERED: BACTRIM DS TAB1 EAC1 PO (10:53)
[2021-01-07 14:50] VITALS: BP 158/68
== END 2021-01-07 15:07 | disposition home or self-care (01) | DRG 871 ==
LOC: M.ERS 18:11 → M.2W 20:29 → M.TBA-ER 20:29 → M.2W 22:16
PROVIDERS: Family Medicine; Internal Medicine; Physician Assistant; ADMIT Internal Medicine; ATTEND Internal Medicine
DX: A41.9 Sepsis, unspecified organism (principal); N17.0 Acute kidney failure with tubular necrosis; N13.6 Pyonephrosis; I10 Essential (primary) hypertension; E11.51 Type 2 diabetes mellitus with diabetic peripheral angiopathy without gangrene; I71.4 Abdominal aortic aneurysm, without rupture; E78.5 Hyperlipidemia, unspecified; I25.10 Atherosclerotic heart disease of native coronary artery without angina pectoris; R77.9 Abnormality of plasma protein, unspecified; F17.210 Nicotine dependence, cigarettes, uncomplicated; G35 Multiple sclerosis; Z20.822 Contact with and (suspected) exposure to COVID-19; Z23 Encounter for immunization; Z95.5 Presence of coronary angioplasty implant and graft; Z91.5 Personal history of self-harm; Z90.49 Acquired absence of other specified parts of digestive tract; Z90.710 Acquired absence of both cervix and uterus; Z79.899 Other long term (current) drug therapy; Z88.5 Allergy status to narcotic agent; Z88.8 Allergy status to other drugs, medicaments and biological substances; Z88.6 Allergy status to analgesic agent; Z91.041 Radiographic dye allergy status

== ENCOUNTER 2021-02-03 16:11 | Emergency (ER) | payer OTHER ==
[~2021-02-03] VITALS: Ht 162.6 cm; Wt 83.9 kg
[~2021-02-03 16:11] MED LIST changes: +BACTRIM DS TAB1 EAC1 PO
[2021-02-03 16:19] VITALS: BP 149/80
== END 2021-02-03 16:29 | disposition left against medical advice (07) ==
LOC: M.ERS 16:11
DX: I10 Essential (primary) hypertension (principal); Z53.21 Procedure and treatment not carried out due to patient leaving prior to being seen by health care provider